=== PATIENT | female | born 1970 | race Caucasian/White ===

== ENCOUNTER 2019-04-06 11:59 | Outpatient (CLI) | payer MEDICAID, SELFPAY ==
--- NOTE | 2019-04-06 12:24 | CT_ITS ---
WS: [id number] CT ABDOMEN PELVIS TECHNIQUE: Contrast-enhanced CT of the abdomen and pelvis with coronal and sagittal reformatted image s. CLINICAL INFORMATION: ABDOMINAL PAIN COMPARISON: 2 ,019 DLP: 581.[address] scans at [facility] use at least one of these dose optimization techniques: automat ed exposure control; mA and/or kV adjustment per patient size (includes targeted exams where dose is matched to clinical indication); or iterative reconstruction. FINDINGS: Mild diffuse fatty infiltration the liver. Portal vein and splenic vein are patent. Normal gallbladde r. Spleen is normal. Normal GE junction. Adrenal glands are normal. Normal renal parenchymal enhancem ent. Pancreatic fatty atrophy. A few tiny low-attenuation lesions in the liver too small characterize but likely incidental hepatic cysts. Urine distended bladder. Scattered stool in the colon. No evidence of small or large bowel obstructio n. Mild tapered narrowing of the distal abdominal aorta with moderate atheromatous disease. This is u nchanged in appearance. Normal lumbar spine. CT/CT abdomen pelvis w con* [id number] IMPRESSION: 1. Mild diffuse fatty infiltration the liver. A few tiny low-attenuation hepat ic lesions too small characterize likely hepatic cysts. 2. Normal gallbladder. 3. Normal bilateral renal parenchymal enhancement. No hydronephrosis. 4. Mild tapered narrowing of the distal abdominal aorta unchanged. 5. Scattered stool in the colon. No high-grade small or large bowel obstructio n. 6. Urine distended bladder 7. Prior hysterectomy. 8. No acute abdominal or pelvic findings.
[2019-04-06] MEDS: iohexol 300 mg/mL 50 mL Btl IV (12:31)
[2019-04-06] MEDS: iohexol 300 mg/mL 100 mL Btl IV (13:58)
== END 2019-04-06 12:00 | disposition home or self-care (01) ==
LOC: RAD 12:00
PROVIDERS: Family Provider Internal Medicine; PCP Internal Medicine; Visit Provider Internal Medicine
DX: K76.0 Fatty (change of) liver, not elsewhere classified (principal); R10.9 Unspecified abdominal pain
CPT/HCPCS: 74177

== ENCOUNTER → 2019-04-22 14:07 | Outpatient (BNVA) | payer MEDICAID, SELFPAY | PROVIDERS: Family Provider Internal Medicine; PCP Internal Medicine; Visit Provider Nurse Practitioner Family | DX: R07.1 Chest pain on breathing (principal); R05 Cough | CPT/HCPCS: 71046 ==

== ENCOUNTER → 2019-04-30 11:04 | Outpatient (BNVA) | payer MEDICAID, SELFPAY | PROVIDERS: Family Provider Internal Medicine; PCP Internal Medicine; Visit Provider Specialist | DX: G43.711 Chronic migraine without aura, intractable, with status migrainosus (principal); F17.210 Nicotine dependence, cigarettes, uncomplicated | CPT/HCPCS: 64615; J0585 ==

== ENCOUNTER 2019-05-08 08:14 | Day surgery (SDC) | payer MEDICAID, SELFPAY ==
[2019-05-07 14:10] VITALS: BMI 22.4
--- NOTE | 2019-05-08 08:53 | ANES.PREANE2 ---
Pre-Anesthetic Assessment Pre-Anesthetic Assessment: Height/Weight: Height 1.65 m Weight 61.235 kg Preop Diagnosis: Pain Proposed Procedure: Operation Date: 05/08/19 09:30 Proposed Procedures p Colonoscopy(Not Applicable) - Nathaniel Zelaya MD Was Beta Tejal taken within 24 hours: Yes Last Intake: 23:59 Social: Social History: Tobacco Packs per day: 1 Comment: 38 Exam: Pre-Anes Outpt Exam: alert, oriented x 3, clear to auscultation bilaterally and regular rate & rhythm Airway: Submandibular: WNL Cervical ROM: WNL MP: 1 Additional comments: very, very poor CV/HEM: CV/HEM: HTN Comments: 19 stress test negative 2 blocks/2 FOS without angina/WADE GI: Comments: diarrhea and pain with defecation Metabolic: Metabolic: DM Comments: rx'd x 19y normally 40-200 Neuropsych: Neuropsych: CVA Comments: 10/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
[2019-05-08 09:27] VITALS: BP 109/65; PULSE 87; RESP 18; TEMP 36.7; O2SAT 96
[2019-05-08 09:35] LABS: Glucose Point of Care 103 mg/dL (70-110)
[2019-05-08] MEDS: sodium chloride 0.9% 1,000 ML 30 ML (09:37)
--- NOTE | 2019-05-08 10:31 | PM.HPUD ---
H&P update H&P Update: DATE OF SURGERY/PROCEDURE: 05/08/19 DATE H&P PERFORMED: 04/30/19 H&P UPDATE INFORMATION: H&P completed within last 30 days and No changes to prior documentation PREOP DIAGNOSIS: a PLANNED PROCEDURE: Operation Date: 05/08/19 09:30 Proposed Procedures p Colonoscopy(Not Applicable) - Nathaniel Zelaya MD Full H&P Perinent History: Medical/Surgical History: Medical History (Updated 04/30/19 @ 13:17 by Celi Peoples MD) Fibromyalgia (Acute) Multiple sclerosis (Acute) Type 1 diabetes mellitus with complication (Acute) Social History: Social History Smoking and tobacco status: current every day smoker cigarettes Packs smoked per day: 1 Alcohol intake: never History of recent travel: No
[2019-05-08 11:16] VITALS: BP 119/49; PULSE 73; RESP 18; TEMP 36.6; O2SAT 97
[2019-05-08 11:38] VITALS: BP 123/73; PULSE 76; RESP 18; O2SAT 99
[2019-05-08 11:53] LABS: Glucose Point of Care 99 mg/dL (70-110)
== END 2019-05-08 11:52 | disposition home or self-care (01) ==
PROVIDERS: Family Provider Internal Medicine; PCP Internal Medicine; Visit Provider Internal Medicine
PROC: 0DJD8ZZ Inspection of Lower Intestinal Tract, Via Natural or Artificial Opening Endoscopic (ICD-10-PCS; CPT 45378; principal; 2019-05-08 09:30)
DX: R19.8 Other specified symptoms and signs involving the digestive system and abdomen (principal); R19.7 Diarrhea, unspecified; F17.210 Nicotine dependence, cigarettes, uncomplicated; E11.40 Type 2 diabetes mellitus with diabetic neuropathy, unspecified; M70.62 Trochanteric bursitis, left hip; Z79.4 Long term (current) use of insulin; Z86.73 Personal history of transient ischemic attack (TIA), and cerebral infarction without residual deficits
CPT/HCPCS: 12345; 36416; 45378; 82962; J2704; J7030

== ENCOUNTER → 2019-08-13 09:02 | Outpatient (BNVA) | payer MEDICAID, SELFPAY | PROVIDERS: Family Provider Internal Medicine; PCP Internal Medicine; Visit Provider Specialist | DX: G43.711 Chronic migraine without aura, intractable, with status migrainosus (principal); F17.210 Nicotine dependence, cigarettes, uncomplicated | CPT/HCPCS: 64615; J0585 ==

== ENCOUNTER 2019-08-18 11:24 | Outpatient (CLI) | payer MEDICAID, SELFPAY ==
--- NOTE | 2019-08-18 11:30 | XRR_ITS ---
PROCEDURE INFORMATION: Exam: XR Left Hip Exam date and time: 08/18/2019 11:29 AM Age: 48 years old Clinical indication: Patient HX: Left hip pain for 6 months; Additional info: Chronic left hip pain TECHNIQUE: Imaging protocol: XR Left hip Views: AP neutral and frogleg standing views. COMPARISON: CT abdomen pelvis w con* [id number] 04/06/2019 2:00 PM FINDINGS: Bones/joints: Unremarkable. No acute fracture. Soft tissues: Unremarkable. XR/XR hip LT 2-3V wo/w pel* [id number] IMPRESSION: No acute findings.
--- NOTE | 2019-08-18 11:44 | XRR_ITS ---
PROCEDURE INFORMATION: Exam: XR Abdomen, 1 View Exam date and time: 08/18/2019 11:48 AM Age: 48 years old Clinical indication: Abdominal pain; Prior surgery; Surgery date: 6+ months; Surgery type: C section, hysto TECHNIQUE: Imaging protocol: XR of the abdomen. Views: Frontal supine view of the abdomen. 1 View. COMPARISON: [place] Gastric Emptying [id number] 06/13/2018 7:32 AM FINDINGS: Gastrointestinal tract: There is increased stool noted in the abdominal colon. Bones/joints: No acute abnormality identified. XR/XR KUB [id number] IMPRESSION: Mild abdominal colonic constipation.
== END 2019-08-18 11:25 | disposition home or self-care (01) ==
PROVIDERS: PCP Internal Medicine; Visit Provider Internal Medicine
DX: R10.9 Unspecified abdominal pain (principal); M25.552 Pain in left hip; G89.29 Other chronic pain; K59.00 Constipation, unspecified
CPT/HCPCS: 73502; 74018

== ENCOUNTER → 2019-09-02 10:30 | Outpatient (BNVA) | payer MEDICAID, SELFPAY | PROVIDERS: PCP Internal Medicine; Visit Provider Nurse Practitioner Family | DX: R50.9 Fever, unspecified (principal); R51 Headache | CPT/HCPCS: 87400; 87635 ==

== ENCOUNTER 2019-09-18 12:02 | Outpatient (CLI) | payer MEDICAID, SELFPAY ==
[2019-09-18] MEDS: iohexol 300 mg/mL 50 mL Btl PO (13:18)
--- NOTE | 2019-09-18 13:30 | CT_ITS ---
WS: [id number] CT ABDOMEN PELVIS TECHNIQUE: Contrast-enhanced CT of the abdomen and pelvis with coronal and sagittal reformatted image s. CLINICAL INFORMATION: RLQ COMPARISON: CT April 06, 2019, May 14, 2018 DLP: 1145.[address] scans at [facility] use at least one of these dose optimization techniques: automat ed exposure control; mA and/or kV adjustment per patient size (includes targeted exams where dose is matched to clinical indication); or iterative reconstruction. FINDINGS: Mild diffuse fatty infiltration liver. Portal vein and splenic vein are patent. Lung bases are well a erated. Normal gallbladder. Spleen is normal. Normal GE junction. Adrenal glands are normal. No hydro nephrosis. Normal renal parenchymal enhancement. Fatty atrophy of the pancreas. Stable tiny low-atten uation lesions in the liver likely hepatic cyst. Small and large bowel appear normal. Normal appendix in the right lower quadrant. Scattered stool in the colon. Mild narrowing of the distal abdominal aorta with moderate calcified atheromatous disease unchanged. Normal lumbar spine. Prior hysterectomy. CT/CT abdomen pelvis w con* [id number] IMPRESSION: 1. No acute abdominal or pelvic findings. 2. Prior hysterectomy. 3. Mild diffuse fatty infiltration of the liver. A few tiny low-attenuation he patic lesions likely hepatic cysts unchanged. 4. Normal gallbladder. 5. Normal appendix. 6. Mild narrowing of the distal abdominal aorta with moderate atheromatous dis ease unchanged.
[2019-09-18] MEDS: iohexol 300 mg/mL 100 mL Btl IV (13:41)
== END 2019-09-18 12:03 | disposition home or self-care (01) ==
LOC: RADWPI 12:09
PROVIDERS: Family Provider Internal Medicine; PCP Internal Medicine; Visit Provider Internal Medicine
DX: R10.31 Right lower quadrant pain (principal); K76.0 Fatty (change of) liver, not elsewhere classified; K76.9 Liver disease, unspecified
CPT/HCPCS: 74177; Q9967

== ENCOUNTER 2019-10-01 01:20 | Emergency (ER) | payer MEDICAID, SELFPAY ==
[2019-10-01 01:27] VITALS: BP 167/95; PULSE 117; RESP 14; TEMP 36.8; O2SAT 97; BMI 26.6
--- NOTE | 2019-10-01 01:27 | ED_ITS ---
HPI - Nausea/Vomiting/Diarrhea General: Chief complaint: Abdominal Pain Stated complaint: N/V Time Seen by Provider: 10/01/19 01:21 Source: patient and EMS Mode of arrival: EMS Limitations: no limitations History of Present Illness: HPI Narrative: 48-year-old female who has a history of chronic abdominal pain along with vomiting. Patient states she is been vomiting over the last day and unable to keep any better medicines down. Patient states she cannot stop vomiting. She has diffuse abdominal cramping she rates a 5 out of 10. She denies any worsening or improving factors. Patient denies any diarrhea. MD elicited complaint: nausea and vomiting Onset (ago): day(s) Associated nausea: Yes Quality: cramping Exacerbating factors: none Relieving factors: none Associated symtoms: Reports nausea; Denies chest pain, dysuria or headache(s) Review of Systems Const: Denies: fever(s), chills, body aches or change in appetite Eyes: Denies: blurry vision or eye discomfort ENMT: Denies: throat pain or dental pain Card: Denies: chest pain Resp: Denies: dyspnea GI: Reports: abdominal pain, nausea and vomiting : Denies: dysuria Musc: Denies: neck pain or back pain Skin/Breast: Denies: rash Neuro: Denies: headache(s) Psych: Denies: depression Serafin/Lymph: Denies: easy bruising All/Imm: Denies: urticaria PFSH ED PFSH: Medical History Fibromyalgia Multiple sclerosis Type 1 diabetes mellitus with complication Social History Smoking and tobacco status: current every day smoker cigarettes Packs smoked per day: 1 Alcohol intake: never History of recent travel: No Physical Exam Const: COMMON NORMALS: no acute distress, patient oriented x3 and healthy appearing HENMT: COMMON NORMALS: normocephalic and atraumatic HEAD & SCALP: normocephalic and atraumatic Eye: COMMON NORMALS: Equal, round and reactive pupils present and EOMs intact bilaterally PUPIL: Yes Equal, round and reactive pupils present Neck/C-Spine: COMMON NORMALS: full ROM and supple Chest: COMMONS NORMALS: normal inspection of the chest and normal palpation of entire chest wall Resp: COMMON NORMALS: normal respiratory effort, No retractions, No use of accessory muscles and clear to auscultation bilaterally AUSCULTATION: clear to auscultation bilaterally Cardio: COMMON NORMALS: regular rate, regular rhythm and No murmurs present (Cardio) RATE: regular rate RHYTHM: regular rhythm GI: COMMON NORMALS: Normal to inspection, nondistended, normoactive bowel sounds present, Soft to palpation, non-tender and no masses PALPATION: Yes Soft to palpation Extremity: COMMON NORMALS: normal to inspection and full ROM Neuro: COMMON NORMALS: patient oriented x3, moves all extremities and no focal motor deficits Psych: COMMON NORMALS: mental status grossly normal, Normal thought process present and cooperative THOUGHT PROCESS: Normal thought process present Skin: COMMON NORMALS: no rashes or lesions noted and no wounds GENERAL SKIN EXAM: no rashes or lesions noted Course Vital Signs: Vital signs: Vital Signs Temperature 98.3 F 10/01/19 01:27 Pulse Rate 93 10/01/19 05:09 Respiratory Rate 18 10/01/19 05:09 Blood Pressure 144/96 10/01/19 05:09 Pulse Oximetry 98 10/01/19 05:09 MDM - Nausea/Vomiting/Diarrhea MDM Narrative: Medical decision making narrative: Kanchan presents here with abdominal pain along with vomiting that is chronic in nature. Patient had slightly elevated white count with CT scan is normal. Patient's feels much improved after IV Reglan and pain meds. Abdominal exam at discharge is benign with no tenderness. Will prescribe her Reglan and Zofran for home and she is to follow-up with PCP in 2 to 4 days. Patient is return if worsening. Patient understands and agrees to plan. Lab Data: Labs: Lab Results 10/01/19 10/01/19 Range/Units 01:39 01:39 WBC 14.6 H (4.0-10.0) 10^3/ uL RBC 4.78 (4.1-5.3) 10^6/u L Hgb 16.0 H (11.5-15.3) g/dL Hct 49.0 H (37.0-47.0) % MCV 102.5 H (81-99) fL MCH 33.5 (28.0-34.0) pg MCHC 32.7 (30.0-36.0) g/dL RDW 12.2 (12.1-15.1) % Plt Count 393 (130-400) 10^3/c mm MPV 10.7 H (7.4-10.4) fL Neut % (Auto) 89.3 % Lymph % (Auto) 8.1 % [place] % (Auto) 2.1 % Eos % (Auto) 0.0 % Baso % (Auto) 0.1 % Neut # (Auto) 13.0 H (1.8-7.7) 10^3/u L Lymph # (Auto) 1.2 (0.8-4.8) 10^3/u L [place] # (Auto) 0.3 (0.2-0.9) 10^3/u L Eos # (Auto) 0.0 (0.0-0.8) 10^3/u L Baso # (Auto) 0.0 (0.0-0.1) 10^3/u L Nucleated RBC % (a uto) 0 % Nucleated RBCs # 0.0 /100WBC Sodium 139 (136-145) mmol/L Potassium 4.3 (3.5-5.1) mmol/L Chloride 98 (98-107) mmol/L Carbon Dioxide 23 (22-29) mmol/L Anion Gap 22.3 H (5-19) BUN 11 (6-20) mg/dL Creatinine 0.6 (0.5-0.9) mg/dL GFR Calculation 106.3 (90-130) mL/min Glucose 423 H (65-115) mg/dL Calculated Osmolal ity 302 H (285-295) mOsm/k g Calcium 9.2 (8.5-10.5) mg/dL Total Bilirubin 0.4 (0.15-1.2) mg/dL AST 16 (0-32) U/L ALT 19 (0-33) U/L Alkaline Phosphata se 216 H (35-105) IU/L Total Protein 8.0 (6.6-8.7) g/dL Albumin 4.1 (3.5-5.2) g/dL Globulin 3.9 (1.3-4.6) g/dL Lipase 6 L (13-60) U/L Imaging Data^: CT Abd/Pel: Radiologist's impression: [address] [address] [address] Scan Report Signed Patient: Viki Lobo Unit #: [id number] : 1970 Age/Sex: 48 / F ADM Date: 10/01/19 Loc: ER Room/Bed: Attending Dr: Ordering Provider/Ordering MD: Sachin Wahl MD Date of Service: 10/01/19 Procedure(s): CT abdomen pelvis w con* [id number] Accession Number(s): [id number] Report Number: [id number] PROCEDURE INFORMATION: Exam: CT Abdomen And Pelvis With Contrast Exam date and time: 10/01/2019 2:30 AM Age: 48 years old Clinical indication: Nausea and vomiting; Abdominal pain; Generalized; Prior surgery; Surgery type: Hysterectomy; Additional info: Abd pain TECHNIQUE: Imaging protocol: Computed tomography of the abdomen and pelvis with intravenous contrast. Radiation optimization: All CT scans at this facility use at least one of these dose optimization techniques: automated exposure control; mA and/or kV adjustment per patient size (includes targeted exams where dose is matched to clinical indication); or iterative reconstruction. Contrast material: OMNI 300; Contrast volume: 95 ml; Contrast route: INTRAVENOUS (IV); COMPARISON: CT abdomen pelvis w con* [id number] 09/18/2019 1:39 PM RADIATION DOSE METRICS: Total DLP (mGy-cm): 646.44 FINDINGS: Lungs: Lung bases are clear. Mediastinal space: There is a small sliding-type hiatal hernia. Liver: The liver is normal. Gallbladder and bile ducts: The gallbladder is dilated. The wall is thin. No definite stones. No significant biliary dilation. Pancreas: There is marked atrophy of the pancreas. Spleen: The spleen is unremarkable. Adrenals: The adrenal glands are unremarkable. Kidneys and ureters: There is a nonobstructive stone in the right kidney. There is no hydronephrosis or ureteral dilation. The left kidney and ureter are unremarkable. Stomach and bowel: The stomach is unremarkable. The small bowel is nondilated. The colon is unremarkable. Appendix: The appendix is normal. Intraperitoneal space: There is no free air or significant intraperitoneal free fluid. Vasculature: There is moderate aortic atherosclerotic disease. Lymph nodes: There is no lymphadenopathy in the retroperitoneum, mesentery, pelvis or inguinal regions. Bladder: The urinary bladder is unremarkable. Reproductive: The uterus is absent. There is no adnexal mass or large cyst. Bones/joints: Unremarkable. No acute fracture. Soft tissues: The abdominal wall is intact. CT/CT abdomen pelvis w con* [id number] IMPRESSION: 1. Dilated gallbladder. No visible stones or wall thickening. Consider follow-up ultrasound if there is clinical evidence of gallbladder disease. 2. Incidental findings above. Discharge Plan Discharge Patient Disposition: Home, Self-Care Clinical Impression: Hyperglycemia Abdominal pain Qualifiers: Abdominal location: generalized Qualified Code(s): R10.84 - Generalized abdominal pain Condition: Stable Prescriptions: New ondansetron 4 mg tablet,disintegrating 4 mg PO Q6H PRN (Reason: nausea and vomiting) Qty: 14 RF: 0 Reglan 10 mg tablet 10 mg PO Q6H PRN (Reason: nausea and vomiting) Qty: 20 RF: 0 No Action pregabalin [Lyrica] 75 mg capsule 75 mg PO TID MDD 3 Qty: 90 RF: 2 desvenlafaxine 100 mg tablet extended release 24 hr 100 mg PO DAILY Qty: 90 RF: 3 aspirin [Adult Aspirin Regimen] 81 mg tablet,delayed release (DR/EC) 81 mg PO DAILY RF: 0 sumatriptan succinate 100 mg tablet 100 mg PO DAILY PRN (Reason: Migraine Headache) RF: 0 ipratropium bromide 42 mcg (0.06 %) spray,non-aerosol 2 spray INTRANASAL TID RF: 0 diphenhydramine HCl [Allergy (diphenhydramine)] 25 mg capsule 25 mg PO BID PRN (Reason: Allergic Symptoms) RF: 0 nitroglycerin 0.4 mg tablet, sublingual 0.4 mg SUBLINGUAL Q5M PRN (Reason: Chest Pain) RF: 0 sucralfate 1 gram tablet 1 gm PO .COMPLEX RF: 0 furosemide 20 mg tablet 10 mg PO QAM Qty: 10 RF: 0 doxycycline hyclate 100 mg capsule 100 mg PO BID Qty: 10 RF: 0 topiramate 100 mg tablet 100 mg PO BID 90 Days Qty: 180 RF: 3 metoprolol tartrate 25 mg tablet 12.5 mg PO BID 90 Days Qty: 90 RF: 3 Novolog Flexpen U-100 Insulin 100 unit/mL (3 mL) insulin pen 5 unit SUBCUT TID Qty: 15 RF: 3 metoclopramide HCl 10 mg tablet 10 mg PO TID Qty: 90 RF: 3 famotidine 20 mg tablet 20 mg PO DAILY Qty: 30 RF: 3 Lantus Solostar U-100 Insulin 100 unit/mL (3 mL) insulin pen 30 unit SUBCUT BID Qty: 15 RF: 3 morphine [MS Contin] 30 mg tablet extended release 30 mg PO Q12H 30 Days Qty: 60 RF: 0 tizanidine 4 mg tablet 4 mg PO Q6H PRN (Reason: Muscle Spasm) RF: 0 pantoprazole 40 mg tablet,delayed release (DR/EC) 40 mg PO DAILY RF: 0 Discharge Orders: Discharge Order (Routine); Ordered 10/01/19 Ordered By: Sachin Wahl Referrals: Nathaniel Zelaya MD [Primary Care Provider] - 1-3 days Discharge Diet: Advance as tolerated Discharge Activity: Resume usual activity Patient Instructions: Abdominal Pain (ED) Discharge Date/Time: 10/01/19 05:12 Coding Level of Care Code ED Marketing Teacher for Chg Fwd Exam Comprehensive
[2019-10-01] MEDS: sodium chloride 0.9% 1,000 ML 999 ML IV ×2 (01:40→02:30)
[2019-10-01] MEDS: metoclopramide 5 mg/mL SDV 2 mL 10 MG IVP (01:42)
[2019-10-01] MEDS: diphenhydrAMINE 50 mg/mL SDV 1mL IVP (01:45)
[2019-10-01 01:50] VITALS: RESP 20; O2SAT 98
[2019-10-01] MEDS: morphine 4 mg/mL SDV 1 mL IVP (01:50)
[2019-10-01 01:54] LABS: Basophils % 0.1 %; Lymphocytes # 1.2 10^3/uL (0.8-4.8); Lymphocytes % 8.1 %; Mean Corpuscular HGB Conc 32.7 g/dL (30.0-36.0); Mean Corpuscular Hemoglobin 33.5 pg (28.0-34.0); Mean Corpuscular Volume 102.5 fL (81-99); Mean Platelet Volume 10.7 fL (7.4-10.4); Monocytes # 0.3 10^3/uL (0.2-0.9); Monocytes % 2.1 %; Neutrophils % 89.3 %; Nucleated Red Blood Cells % 0 %; Platelet Count 393 10^3/cmm (130-400); Red Blood Count 4.78 10^6/uL (4.1-5.3); Red Cell Distribution Width 12.2 % (12.1-15.1); White Blood Count 14.6 10^3/uL (4.0-10.0)
[2019-10-01 02:09] LABS: Alanine Aminotransferase 19 U/L (0-33); Albumin Level 4.1 g/dL (3.5-5.2); Alkaline Phosphatase 216 IU/L (35-105); Anion Gap 22.3 (5-19); Aspartate Amino Transferase 16 U/L (0-32); Blood Urea Nitrogen 11 mg/dL (6-20); Calcium 9.2 mg/dL (8.5-10.5); Carbon Dioxide 23 mmol/L (22-29); Chloride 98 mmol/L (98-107); Globulin 3.9 g/dL (1.3-4.6); Glomerular Filtration Rate 106.3 mL/min (90-130); Glucose 423 mg/dL (65-115); Lipase 6 U/L (13-60); Osmolality Calculated 302 mOsm/kg (285-295); Potassium 4.3 mmol/L (3.5-5.1); Sodium 139 mmol/L (136-145); Total Bilirubin 0.4 mg/dL (0.15-1.2)
--- NOTE | 2019-10-01 02:27 | CTR_ITS ---
PROCEDURE INFORMATION: Exam: CT Abdomen And Pelvis With Contrast Exam date and time: 10/01/2019 2:30 AM Age: 48 years old Clinical indication: Nausea and vomiting; Abdominal pain; Generalized; Prior surgery; Surgery type: Hysterectomy; Additional info: Abd pain TECHNIQUE: Imaging protocol: Computed tomography of the abdomen and pelvis with intravenous contrast. Radiation optimization: All CT scans at this facility use at least one of these dose optimization techniques: automated exposure control; mA and/or kV adjustment per patient size (includes targeted exams where dose is matched to clinical indication); or iterative reconstruction. Contrast material: OMNI 300; Contrast volume: 95 ml; Contrast route: INTRAVENOUS (IV); COMPARISON: CT abdomen pelvis w con* [id number] 09/18/2019 1:39 PM RADIATION DOSE METRICS: Total DLP (mGy-cm): 646.44 FINDINGS: Lungs: Lung bases are clear. Mediastinal space: There is a small sliding-type hiatal hernia. Liver: The liver is normal. Gallbladder and bile ducts: The gallbladder is dilated. The wall is thin. No definite stones. No significant biliary dilation. Pancreas: There is marked atrophy of the pancreas. Spleen: The spleen is unremarkable. Adrenals: The adrenal glands are unremarkable. Kidneys and ureters: There is a nonobstructive stone in the right kidney. There is no hydronephrosis or ureteral dilation. The left kidney and ureter are unremarkable. Stomach and bowel: The stomach is unremarkable. The small bowel is nondilated. The colon is unremarkable. Appendix: The appendix is normal. Intraperitoneal space: There is no free air or significant intraperitoneal free fluid. Vasculature: There is moderate aortic atherosclerotic disease. Lymph nodes: There is no lymphadenopathy in the retroperitoneum, mesentery, pelvis or inguinal regions. Bladder: The urinary bladder is unremarkable. Reproductive: The uterus is absent. There is no adnexal mass or large cyst. Bones/joints: Unremarkable. No acute fracture. Soft tissues: The abdominal wall is intact. CT/CT abdomen pelvis w con* [id number] IMPRESSION: 1. Dilated gallbladder. No visible stones or wall thickening. Consider follow-up ultrasound if there is clinical evidence of gallbladder disease. 2. Incidental findings above. Radiation Dose CTDIVOL = (mGy): DLP = 646.44 (mGy-cm)
[2019-10-01] MEDS: insulin regular-human 100 units/1 mL 10 UNIT IVP (02:37)
[2019-10-01] MEDS: iohexol 300 mg/mL 100 mL Btl IV (04:01)
[2019-10-01 05:09] VITALS: BP 144/96; PULSE 93; RESP 18; O2SAT 98
[2019-10-01 05:16] LABS: Blood Urine Trace (Negative); Glucose Urine UA 4+ (Normal); Ketones Urine 2+ (Negative); Protein Urine Neg (Negative); Specific Gravity, Urine 1.005 (1.005-1.030); Urine Appearance Clear (CLEAR); Urine Color Yellow (Yellow)
[2019-10-01 05:17] LABS: Add Urine Culture? No; Add Urine Microscopic? YES; Bacteria Urine TRACE; Bilirubin Urine Neg (NEGATIVE); Leukocyte Esterase Urine Negative (Negative); Mucus Urine TRACE; Nitrate Urine Negative (Negative); RBC Urine 0-4 /hpf (0-2); Squamous Epithelial Cell Urine 0-4 (0-5); Urobilinogen Urine Norm (Negative)
[2019-10-01 07:58] LABS: Glucose Point of Care 301 mg/dL (70-110)
--- NOTE | 2019-10-01 08:43 | DCPLANNER ---
real estate leasing manager had message to schedule a follow up appointment for patient with Dr. Colindres. real estate leasing manager called the office of Dr. Colindres, spoke with Jazmin, a follow up appointment was scheduled for Sunday, October 06, 2019 at 2:00. real estate leasing manager faxed patients information to clinic. Clinic will call patient with appointment information.
--- NOTE | 2019-10-14 13:58 | DCPLANNER ---
Patient did not attend appointment scheduled for 10.06.[address] Colindres.
== END 2019-10-01 05:12 | disposition home or self-care (01) ==
PROVIDERS: Emergency Provider Emergency Medicine; PCP Internal Medicine
DX: R10.84 Generalized abdominal pain (principal); E10.65 Type 1 diabetes mellitus with hyperglycemia; Z79.82 Long term (current) use of aspirin; Z79.4 Long term (current) use of insulin; F17.210 Nicotine dependence, cigarettes, uncomplicated
CPT/HCPCS: 12345; 36416; 74177; 80053; 81001; 82962; 83690; 85025; 96361; 96374; 96375; 99282; 99283; J1200; J1815; J2270; J2765; J7030; Q9967

== ENCOUNTER 2019-10-01 21:14 | Inpatient (IN) | payer MEDICAID, SELFPAY ==
[2019-10-01 22:47] LABS: Basophils % 0.2 %; Hemoglobin 15.2 g/dL (11.5-15.3); Lymphocytes # 1.7 10^3/uL (0.8-4.8); Lymphocytes % 9.3 %; Mean Corpuscular Hemoglobin 33.3 pg (28.0-34.0); Mean Corpuscular Volume 100.9 fL (81-99); Mean Platelet Volume 10.9 fL (7.4-10.4); Monocytes # 0.8 10^3/uL (0.2-0.9); Monocytes % 4.7 %; Neutrophils # 15.3 10^3/uL (1.8-7.7); Neutrophils % 85.2 %; Nucleated Red Blood Cells % 0 %; Platelet Count 486 10^3/cmm (130-400); Red Blood Count 4.56 10^6/uL (4.1-5.3); Red Cell Distribution Width 12.5 % (12.1-15.1)
[2019-10-01 22:51] VITALS: BP 132/67; PULSE 123; RESP 18; TEMP 36.8; O2SAT 99; BMI 26.6
--- NOTE | 2019-10-01 22:53 | ED_ITS ---
Documented by User: BILL Torres 10/02/19 02:51 HPI - Abdominal Pain General: Chief Complaint: Nausea/Vomiting/Diarrhea Stated Complaint: n/v Time Seen by Provider: 10/01/19 22:53 Source: patient Mode of arrival: ambulatory Limitations: no limitations History of Present Illness: HPI narrative: Patient comes in today for complaints of nausea and vomiting and generalized abdominal pain. Patient was evaluated last night for same complaints. Patient had a mild leukocytosis of 14,000. CT scan showed no obvious abnormality. Patient came back due to persistent nausea and vomiting and pain. Patient appears unwell. Patient appears in moderate pain. MD elicited complaint: abdominal pain Associated Symptoms: Reports nausea and vomiting Review of Systems General: Reports: 10 or more systems reviewed and unremarkable except in HPI and below GI: Reports: abdominal pain, nausea and vomiting PFSH ED PFSH: Medical History Chronic migraine without aura, intractable, with status migrainosus CVA (cerebral vascular accident) Received TPA 10/17 Fibromyalgia Gastroparesis Generalized anxiety disorder Multiple sclerosis Multiple sclerosis Painful diabetic neuropathy TIA (transient ischemic attack) Trochanteric bursitis of left hip Type 1 diabetes mellitus with complication Surgical History H/O carpal tunnel repair H/O shoulder surgery H/O: hysterectomy Hx of tubal ligation Family History (Updated 10/02/19 @ 03:30 by Alexx Cintron MD) Denies family history of Hyperlipidemia Hypertension Social History Smoking and tobacco status: current every day smoker cigarettes Packs smoked per day: 1 Alcohol intake: never History of recent travel: No Physical Exam Const: COMMON NORMALS: no acute distress and patient oriented x3 GENERAL APPEARANCE: cooperative HENMT: COMMON NORMALS: normocephalic, TM's normal bilaterally and Normal external nose present HEAD & SCALP: normal to inspection and normocephalic NOSE: Normal external nose present TYMPANIC MEMBRANE: TM's normal bilaterally MOUTH: Normal oral and palatal mucosa present THROAT: posterior oropharynx normal Eye: GENERAL EYE: appearance normal, both eyes and all related structures Neck/C-Spine: COMMON NORMALS: full ROM Lymph: LYMPHATIC: no lymphadenopathy noted Chest: COMMONS NORMALS: normal inspection of the chest Resp: COMMON NORMALS: normal respiratory effort EFFORT & INSPECTION: Yes able to speak in complete sentences Cardio: COMMON NORMALS: regular rate and regular rhythm RATE: regular rate RHYTHM: regular rhythm GI: COMMON NORMALS: Soft to palpation PALPATION: Yes Soft to palpation and Yes Tenderness to palpation present (GI) : COMMON NORMALS: Yes no CVA tenderness BLADDER/KIDNEY EXAM: Yes no CVA tenderness Back/Pelvis: COMMON NORMALS: no CVA tenderness and thoracic and lumbar spine normal to inspection Extremity: COMMON NORMALS: normal to inspection Neuro: COMMON NORMALS: patient oriented x3 and moves all extremities Psych: COMMON NORMALS: mental status grossly normal and cooperative Skin: COMMON NORMALS: no rashes or lesions noted GENERAL SKIN EXAM: no rashes or lesions noted Course ED course: 29, reviewed labs with Dr. Wahl who feels the patient probably is dehydrated now from intractable vomiting. Recommended observation admission for treatment. Reviewed with patient who is agreeable to plan. wjw 112, patient has had another episode of nausea and vomiting, ordered 25 mg prom ethazine IM, wjw Vital Signs: Vital signs: Vital Signs Temperature 98.2 F 10/01/19 22:51 Pulse Rate 123 H 10/01/19 22:51 Respiratory Rate 16 10/02/19 00:33 Blood Pressure 132/67 10/01/19 22:51 Pulse Oximetry 99 10/01/19 22:51 MDM - Abdominal Pain MDM Narrative: Medical decision making narrative: Patient comes in for persistent vomiting and abdominal pain. Patient has chronic history of abdominal pain with recurrent nausea and vomiting. Patient also has a history of diabetes type 1 and pancreatitis. Patient started 2 days ago with vomiting and abdominal pain. Patient was evaluated last evening and was noted not to have any significant illness after laboratory values and CT scan of the abdomen. Patient came in today due to persistent symptoms. Exam noted abdominal tenderness to light palpation. Vital signs were normal. Differential diagnosis includes diabetic ketoacidosis, intractable vomiting, dehydration. Laboratory values noted increase in white count 18,000 from last evening. Blood glucose went to 467, sodium was 146, anion gap was 30. Patient did have serum ketones. Ultrasound of the right side abdomen noted fluid in the stomach, normal gallbladder, and some mild fat on the liver. I reviewed this with Dr. Wahl who agreed with plan that patient should be admitted observation for her dehydration and intractable vomiting. Patient was treated in the ER with IV fluids and medications. Patient needs admission for continuation of IV fluids, management for nausea and vomiting, pain control and monitoring for deterioration of condition. Lab Data: Labs: Lab Results 10/01/19 10/01/19 10/01/19 Range/Units 22:30 22:30 22:30 WBC 18.0 H (4.0-10.0) 10^3/ uL RBC 4.56 (4.1-5.3) 10^6/u L Hgb 15.2 (11.5-15.3) g/dL Hct 46.0 (37.0-47.0) % MCV 100.9 H (81-99) fL MCH 33.3 (28.0-34.0) pg MCHC 33.0 (30.0-36.0) g/dL RDW 12.5 (12.1-15.1) % Plt Count 486 H (130-400) 10^3/c mm MPV 10.9 H (7.4-10.4) fL Neut % (Auto) 85.2 % Lymph % (Auto) 9.3 % Shannon % (Auto) 4.7 % Eos % (Auto) 0.0 % Baso % (Auto) 0.2 % Neut # (Auto) 15.3 H (1.8-7.7) 10^3/u L Lymph # (Auto) 1.7 (0.8-4.8) 10^3/u L Shannon # (Auto) 0.8 (0.2-0.9) 10^3/u L Eos # (Auto) 0.0 (0.0-0.8) 10^3/u L Baso # (Auto) 0.0 (0.0-0.1) 10^3/u L Nucleated RBC % (a uto) 0 % Nucleated RBCs # 0.0 /100WBC Sodium 146 H (136-145) mmol/L Potassium 3.6 (3.5-5.1) mmol/L Chloride 99 (98-107) mmol/L Carbon Dioxide 20 L (22-29) mmol/L Anion Gap 30.6 H (5-19) BUN 17 (6-20) mg/dL Creatinine 0.8 (0.5-0.9) mg/dL GFR Calculation 76.2 L (90-130) mL/min Glucose 467 H (65-115) mg/dL Calculated Osmolal ity 319 H (285-295) mOsm/k g Calcium 10.0 (8.5-10.5) mg/dL Total Bilirubin 0.5 (0.15-1.2) mg/dL AST 11 (0-32) U/L ALT 16 (0-33) U/L Alkaline Phosphata se 195 H (35-105) IU/L Total Protein 7.7 (6.6-8.7) g/dL Albumin 4.3 (3.5-5.2) g/dL Globulin 3.4 (1.3-4.6) g/dL Lipase 81 H (13-60) U/L Serum Ketones Positive H (Negative) Discharge Plan Discharge Admit Provider: Alexx Cintron Clinical Impression: Type 1 diabetes mellitus with complication, Acute dehydration Intractable vomiting Qualifiers: Vomiting type: unspecified Nausea presence: with nausea Qualified Code(s): R11.2 - Nausea with vomiting, unspecified Condition: Stable Coding Level of Care Code ED Activities Aide for Chg Fwd Exam Comprehensive Documented by User: Sachin Wahl MD 10/02/19 03:41 HPI - Abdominal Pain General: Chief Complaint: Nausea/Vomiting/Diarrhea Stated Complaint: n/v Time Seen by Provider: 10/01/19 22:53 PFSH ED PFSH: Medical History Chronic migraine without aura, intractable, with status migrainosus CVA (cerebral vascular accident) Received TPA 10/17 Fibromyalgia Gastroparesis Generalized anxiety disorder Multiple sclerosis Multiple sclerosis Painful diabetic neuropathy TIA (transient ischemic attack) Trochanteric bursitis of left hip Type 1 diabetes mellitus with complication Surgical History H/O carpal tunnel repair H/O shoulder surgery H/O: hysterectomy Hx of tubal ligation Family History (Updated 10/02/19 @ 03:30 by Alexx Cintron MD) Denies family history of Hyperlipidemia Hypertension Social History Smoking and tobacco status: current every day smoker cigarettes Packs smoked per day: 1 Alcohol intake: never History of recent travel: No Course Vital Signs: Vital signs: Vital Signs Temperature 98.2 F 10/01/19 22:51 Pulse Rate 123 H 10/01/19 22:51 Respiratory Rate 16 10/02/19 00:33 Blood Pressure 132/67 10/01/19 22:51 Pulse Oximetry 99 10/01/19 22:51 MDM - Abdominal Pain MDM Narrative: Medical decision making narrative: Patient presents here with intractable vomiting. Patient has dehydration with elevated anion gap likely from dehydration. Her pH here is normal and no signs of DKA. Patient given insulin along with IV fluids. I spoke to hospitalist and will admit. Patient is been stable on the ER. Lab Data: Labs: Lab Results 10/01/19 10/01/19 10/01/19 Range/Units 22:30 22:30 22:30 WBC 18.0 H (4.0-10.0) 10^3/ uL RBC 4.56 (4.1-5.3) 10^6/u L Hgb 15.2 (11.5-15.3) g/dL Hct 46.0 (37.0-47.0) % MCV 100.9 H (81-99) fL MCH 33.3 (28.0-34.0) pg MCHC 33.0 (30.0-36.0) g/dL RDW 12.5 (12.1-15.1) % Plt Count 486 H (130-400) 10^3/c mm MPV 10.9 H (7.4-10.4) fL Neut % (Auto) 85.2 % Lymph % (Auto) 9.3 % Shannon % (Auto) 4.7 % Eos % (Auto) 0.0 % Baso % (Auto) 0.2 % Neut # (Auto) 15.3 H (1.8-7.7) 10^3/u L Lymph # (Auto) 1.7 (0.8-4.8) 10^3/u L Shannon # (Auto) 0.8 (0.2-0.9) 10^3/u L Eos # (Auto) 0.0 (0.0-0.8) 10^3/u L Baso # (Auto) 0.0 (0.0-0.1) 10^3/u L Nucleated RBC % (a uto) 0 % Nucleated RBCs # 0.0 /100WBC Sodium 146 H (136-145) mmol/L Potassium 3.6 (3.5-5.1) mmol/L Chloride 99 (98-107) mmol/L Carbon Dioxide 20 L (22-29) mmol/L Anion Gap 30.6 H (5-19) BUN 17 (6-20) mg/dL Creatinine 0.8 (0.5-0.9) mg/dL GFR Calculation 76.2 L (90-130) mL/min Glucose 467 H (65-115) mg/dL Calculated Osmolal ity 319 H (285-295) mOsm/k g Calcium 10.0 (8.5-10.5) mg/dL Total Bilirubin 0.5 (0.15-1.2) mg/dL AST 11 (0-32) U/L ALT 16 (0-33) U/L Alkaline Phosphata se 195 H (35-105) IU/L Total Protein 7.7 (6.6-8.7) g/dL Albumin 4.3 (3.5-5.2) g/dL Globulin 3.4 (1.3-4.6) g/dL Lipase 81 H (13-60) U/L Serum Ketones Positive H (Negative) Discharge Plan Discharge Admit Provider: Alexx Cintron Clinical Impression: Type 1 diabetes mellitus with complication, Acute dehydration Intractable vomiting Qualifiers: Vomiting type: unspecified Nausea presence: with nausea Qualified Code(s): R11.2 - Nausea with vomiting, unspecified Condition: Stable Coding Level of Care Code ED Activities Aide for [facility] Fwd Exam Comprehensive
[2019-10-01 23:09] LABS: Alanine Aminotransferase 16 U/L (0-33); Albumin Level 4.3 g/dL (3.5-5.2); Alkaline Phosphatase 195 IU/L (35-105); Anion Gap 30.6 (5-19); Aspartate Amino Transferase 11 U/L (0-32); Blood Urea Nitrogen 17 mg/dL (6-20); Carbon Dioxide 20 mmol/L (22-29); Chloride 99 mmol/L (98-107); Globulin 3.4 g/dL (1.3-4.6); Glomerular Filtration Rate 76.2 mL/min (90-130); Glucose 467 mg/dL (65-115); Lipase 81 U/L (13-60); Osmolality Calculated 319 mOsm/kg (285-295); Potassium 3.6 mmol/L (3.5-5.1); Sodium 146 mmol/L (136-145); Total Bilirubin 0.5 mg/dL (0.15-1.2); Total Protein 7.7 g/dL (6.6-8.7)
--- NOTE | 2019-10-01 23:15 | US_ITS ---
WS: [id number] ULTRASOUND ABDOMEN LIMITED CLINICAL INFORMATION: right side abd pain, elevated alk phos, lipase COMPARISON: None. FINDINGS: Liver Size: Normal. Craniocaudal length: 12.0 cm. Echogenicity: Normal. Surface nodularity: None. Mass (size and location): None. Bile ducts Intrahepatic ducts: Normal. Common bile duct diameter: 0.3 cm. Gallbladder Normal. Gallstones: None. Gallbladder sludge: None. Gallbladder wall thickening: None. Pericholecystic fluid: None. Sonographic Monroy sign: Absent. Pancreas Normal as visualized. Right kidney: Normal. Hydronephrosis: None. Size: 10.2 cm x 4.0 cm x 4.0 cm. Abdominal aorta and IVC Visualized portions are normal. Ascites: None. US/US abdomen limited [id number] IMPRESSION: Normal abdominal ultrasound
[2019-10-02] VITALS (17 sets, daily range): BP systolic 106–154; BP diastolic 58–89; PULSE 87–123; RESP 16–25; TEMP 36.5–36.7; O2SAT 92–100
[2019-10-02 00:21] LABS: Ketone (Acetest) Serum Positive (Negative)
[2019-10-02] MEDS: morphine 4 mg/mL SDV 1 mL IVP (00:33)
[2019-10-02] MEDS: diphenhydrAMINE 50 mg/mL SDV 1mL IVP (00:34)
[2019-10-02] MEDS: sodium chloride 0.9% 1,000 ML 999 ML IV (00:34)
[2019-10-02] MEDS: metoclopramide 5 mg/mL SDV 2 mL 10 MG IVP (00:34)
[2019-10-02] MEDS: insulin regular-human 100 units/1 mL 10 UNIT IVP (01:58)
[2019-10-02] MEDS: promethazine 25 mg/mL SDV 1 mL IM (02:00)
[2019-10-02] MEDS: pantoprazole 40 mg SDV IVP ×2 (02:00→22:25)
[2019-10-02] MEDS: sodium chloride 0.9% 1,000 ML 666 ML IV (02:00)
[2019-10-02 02:01] LABS: ABG PCO2 29.2 mmHg (35-45); ABG PH Result 7.41 (7.35-7.45); Arterial Blood Gas Hematocrit 44.4 % (37-47); Base Excess ABG -4.7 mmol/L (-2.0-2.0); Blood Gas Allen Test Pos; Blood Gas Sample Site Radial, right; Blood Gas Sample Type Arterial; HCO3 ABG 18.6 mmol/L (22-26); Oxygen Device ROOM AIR; PO2 ABG 81.1 mmHg (80.0-100.0)
--- NOTE | 2019-10-02 02:16 | P.HP_ITS ---
Providers/Chief Complaint Primary Care Provider: Nathaniel Zelaya MD Chief Complaint: n/v History of Present Illness Viki Lobo is a 48 year old female who carries history of type 1 diabetes, multiple sclerosis, came in for fever and intractable nausea vomiting. Patient has seen Dr. Zelaya for her fever 2 weeks ago, at home she has been having febrile episode of 101.7, Dr. Zelaya started her on doxycycline for possible tickborne illness. Her fever never subsided, 2 days ago she started experiencing midepigastric pain with multiple bouts of nausea and vomiting, and total she has had more than 20 episodes of emesis, bilious, without any blood content. She has not noticed any association with food intake. She has been taking her long-acting and sliding scale although her p.o. intake was not adequate. She is denying shortness of breath, chest pain, sputum production, recently she was tested for code which was negative. He is also denying dysuria, urinary frequency or recent tick bites. She is endorsing chronic neck pain for which she required Botox injection by Dr. Peoples. She is not endorsing aggravatiON of her neck pain or headache. Diagnosis in the ER revealed hyperglycemia, positive ketones, high anion gap without acidosis She has been given 1 L normal saline in the ER, CT abdomen is concerning for gallbladder wall thickening, requested ultrasound abdomen to rule out cholecystitis, no source of fever has been identified I have requested chest x-ray, troponin and lactic acid, EKG as well Review of Systems Const: Reports: fever(s), chills, change in appetite and fatigue Eyes: Denies: change in vision ENMT: Denies: throat pain Card: Denies: chest pain, swelling of feet/ankles, dyspnea on exertion or orthopnea Resp: Denies: dyspnea GI: Reports: abdominal pain, nausea and vomiting : Denies: flank pain Musc: Reports: neck pain Skin/Breast: Reports: rash and lesions Neuro: Reports: headache(s) Psych: Denies: anxiety Endo: Denies: polyuria Serafin/Lymph: Denies: easy bruising All/Imm: Denies: urticaria Medications/Allergies Home Medications Medication Instructions Recorded Confirmed Last Taken Type aspirin 81 mg tablet,delayed 81 mg PO DAILY tab 04/22/19 09/22/19 05/07/19 History release diphenhydramine HCl 25 mg capsule 25 mg PO BID PRN cap 04/22/19 09/22/19 Unknown History ipratropium bromide 42 mcg (0.06 2 spray INTRANASAL TID 04/22/19 09/22/19 05/07/19 History %) nasal spray metoprolol tartrate 25 mg tablet 12.5 mg PO BID 90 Days #90 tab 04/22/19 09/22/19 05/08/19 Rx nitroglycerin 0.4 mg sublingual 0.4 mg SUBLINGUAL Q5M PRN 04/22/19 09/22/19 Unknown History tablet sucralfate 1 gram tablet 1 gm PO .COMPLEX 04/22/19 09/22/19 05/07/19 History sumatriptan succinate 100 mg tablet 100 mg PO DAILY PRN tab 04/22/19 09/22/19 Unknown History topiramate 100 mg tablet 100 mg PO BID 90 Days #180 tab 04/22/19 09/22/19 05/07/19 Rx insulin aspart U-100 100 unit/mL 5 unit SUBCUT TID #15 ml 04/27/19 09/22/19 05/07/19 Rx (3 mL) subcutaneous pen tizanidine 4 mg PO Q6H PRN 05/07/19 09/22/19 Unknown History pantoprazole 40 mg PO DAILY 05/08/19 09/22/19 05/07/19 History famotidine 20 mg tablet 20 mg PO DAILY #30 tab 06/18/19 09/22/19 Unknown Rx metoclopramide HCl 10 mg tablet 10 mg PO TID #90 tab 06/18/19 09/22/19 Unknown Rx pregabalin 75 mg capsule 75 mg PO TID #90 cap MDD 3 07/13/19 09/22/19 Unknown Rx furosemide 20 mg tablet 10 mg PO QAM #10 tab 07/30/19 09/22/19 Unknown Rx desvenlafaxine 100 mg 100 mg PO DAILY #90 tab 09/22/19 09/22/19 Unknown Rx tablet,extended release 24 hour doxycycline hyclate 100 mg capsule 100 mg PO BID #10 cap 09/22/19 09/22/19 Unknown Rx insulin glargine 100 unit/mL (3 30 unit SUBCUT BID #15 ml 09/22/19 09/22/19 Unknown Rx mL) subcutaneous pen morphine 30 mg tablet,extended 30 mg PO Q12H 30 Days #60 tab 09/22/19 09/22/19 Unknown Rx release metoclopramide HCl [Reglan] 10 mg PO Q6H PRN #20 tab 10/01/19 Unknown Rx ondansetron 4 mg PO Q6H PRN #14 tab 10/01/19 Unknown Rx Allergies Allergy/AdvReac Type Severity Reaction Status Date / Time latex Allergy Severe ALGY-Anaphy Verified 09/22/19 15:07 laxis Penicillins Allergy Severe ALGY-Anaphy Verified 09/22/19 15:07 laxis sulfamethoxazole Allergy ADR-Itching Verified 09/22/19 15:07 [From Bactrim] trimethoprim [From Bactrim] Allergy ADR-Itching Verified 09/22/19 15:07 PFSH Acute PFSH: Medical History Chronic migraine without aura, intractable, with status migrainosus CVA (cerebral vascular accident) Received TPA 10/17 Fibromyalgia Gastroparesis Generalized anxiety disorder Multiple sclerosis Multiple sclerosis Painful diabetic neuropathy TIA (transient ischemic attack) Trochanteric bursitis of left hip Type 1 diabetes mellitus with complication Surgical History H/O carpal tunnel repair H/O shoulder surgery H/O: hysterectomy Hx of tubal ligation Family History (Updated 10/02/19 @ 03:30 by Alexx Cintron MD) Denies family history of Hyperlipidemia Hypertension Social History Smoking and tobacco status: current every day smoker cigarettes Packs smoked per day: 1 Alcohol intake: never History of recent travel: No Vitals/I&O/Wt Last Vital Signs Temp 98.2 F 10/01/19 22:51 Pulse 123 H 10/01/19 22:51 Resp 16 10/02/19 00:33 BP 132/67 10/01/19 22:51 Pulse Ox 99 10/01/19 22:51 10/01/19 10/01/19 10/02/19 14:59 22:59 06:59 Intake Total 1000 / 1000 Balance 1000 / 1000 Weight last 48 hrs Weight 72.575 kg Physical Exam Narrative: EXAM NARRATIVE: Head to toe examination EOMI, PERRLA, appears dehydrated patient in distress lying in her right lateral position Saturating well on room air Rectal temperature was taken which was 98.7 She has tenderness on deep palpation in mid epigastric and lower quadrant of the abdomen, bowel sounds sluggish S1, S2 sinus tachycardia Patient looks dehydrated Neurologically nonfocal exam Lungs are clear to auscultation Patient is in distress Awake alert oriented x3 GCS 15 Lower extremity without any signs of edema gangrene or ulcer Data : 10/01/19 22:30 10/01/19 22:30 A&P Assessment and plan (1) Hyperglycemia: Status: Acute (2) Intractable vomiting: Status: Acute Qualifiers: Nausea presence: with nausea Vomiting type: unspecified Qualified Code(s): R11.2 - Nausea with vomiting, unspecified (3) Acute dehydration: Status: Acute (4) Abdominal pain: Status: Acute Qualifiers: Abdominal location: generalized Qualified Code(s): R10.84 - Generalized abdominal pain (5) Type 1 diabetes mellitus with complication: Status: Acute Additional A&P Information Type 1 diabetes, hyperglycemia without DKA iNTractable nausea vomiting secondary to diabetic gastroparesis Ketones are positive most likely due to dehydration She is not acidotic at all I will start her on fluids, use Lantus once a day instead of twice a day along sliding scale to prevent going her into DKA I have requested troponin, EKG and chest x-ray Febrile episode without source identification CT abdomen concerning for bladder wall thickening, requested ultrasound abdomen Lactic acid I would keep her on ciprofloxacin and Flagyl for now She was spiking fever on doxycycline which was started for concern of tickborne illness by Dr. Zelaya We will get blood cultures No signs of sepsis on admission Rectal temperature 98.7 Dehydration secondary to multiple episode of emesis Fluid resuscitation, Multiple sclerosis No acute decompensation Full code DVT prophylaxis Lovenox N.p.o. Attestations Medical Necessity Statement*: Anticipating stay in the hospital cross to be less than 2 midnights currently need fluid resuscitation for intractable nausea vomiting and dehydration Time Spent in Patient Care: (>than 50% of time spent in counselling and/or direct pt care on unit) . 50 minutes Coding Level of Care Code [facility] Psychiatrist for Chg Fwd Diagnoses Hyperglycemia R73.9 Intractable vomiting R11.2 Nausea presence: with nausea Vomiting type: unspecified Acute dehydration E86.0 Abdominal pain R10.84 Abdominal location: generalized Type 1 diabetes mellitus with complication E10.8
[2019-10-02 02:57] LABS: Lactate (Lactic Acid level) 1.7 mmol/L (0.5-2.2)
[2019-10-02 02:58] LABS: Troponin T (5th) Once 32 ng/L (0-10)
[2019-10-02 03:30] LABS: Glucose Point of Care 367 mg/dL (70-110)
--- NOTE | 2019-10-02 03:36 | XR_ITS ---
WS: [id number] CHEST XRAY TECHNIQUE: Portable chest. CLINICAL INFORMATION: SOB COMPARISON: April 22, 2019 FINDINGS: Heart: Normal cardiac silhouette. Lungs: Mild chronic emphysematous changes. Mild interstitial thickening in the mid and lower lungs. N o focal pneumonia. Bones: Normal visualized bony structures. XR/XR chest 1V portable [id number] IMPRESSION: Mild interstitial thickening in the lung bases. No focal pneumonia.
--- NOTE | 2019-10-02 04:17 | PC.NURSE ---
Attempted to place patient in gown. Patient refused stated If I move I will throw up .
--- NOTE | 2019-10-02 05:36 | ECG_ITS ---
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 Measurements Intervals [place] Rate: 121 P: 62 AK: 123 QRS: 49 QRSD: 88 T: 51 QT: 338 QTc: 480 Interpretive Statements SINUS TACHYCARDIA NONSPECIFIC ST & T-WAVE ABNORMALITY ABNORMAL RHYTHM ECG Compared to ECG 10/09/2018 16:56:24 T-wave abnormality now present Sinus rhythm no longer present Electronically Signed On 10-02-2019 7:26:11 CDT by Wilmer Hilario M.D. [id number]
[2019-10-02] MEDS: metoclopramide 5 mg/mL SDV 2 mL IVP ×3 (05:49→19:13)
[2019-10-02] MEDS: enoxaparin 40 mg/0.4 mL Syringe SUBCUT (05:49)
[2019-10-02] MEDS: sodium chlor 0.9% + KCl 20 mEq 20 MEQ/1,000 ML BAG 75 MEQ IV ×2 (06:10→19:14)
[2019-10-02] MEDS: ciprofloxacin 400 MG/200 ML PREMIX 200 MG IV ×2 (06:10→18:14)
[2019-10-02 07:24] LABS: Troponin 5 2HR 37.01 ng/L (0-10)
[2019-10-02 07:34] LABS: Troponin 5 2HR Delta 5.01 ABS# (0-10)
[2019-10-02 07:38] LABS: Glucose Point of Care 326 mg/dL (70-110)
[2019-10-02] MEDS: metroNIDAZOLE IV 500 MG/100 ML PREMIX 100 MG IV ×2 (07:58→15:21)
[2019-10-02] MEDS: sucralfate 1 gm Tablet PO ×2 (08:02→22:02)
--- NOTE | 2019-10-02 09:44 | FL_ITS ---
WS: [id number] LUMBAR PUNCTURE CLINICAL INFORMATION: FUO, headache COMPARISON: None. TECHNIQUE: Informed consent: The procedure and its potential risk and complications were discussed with the priscilla ent. Verbal and written consent was obtained. Timeout: A timeout was performed to confirm correct patient, procedure, and site. Patient was prepped and draped in the usual sterile fashion. Lidocaine 1% was used for local anesthes ia. Utilizing fluoroscopic guidance, a 3.5 inch 22-gauge spinal needle was advanced into the subarach noid space at L4-5 via left oblique sublaminar approach. Free flow of clear CSF was obtained. 8 cc of CSF was collected and sent the lab for further analysis. FLUOROSCOPIC TIME: 0.1 minutes. FL/FL guided lumbarpunc dx* [id number] IMPRESSION: Fluoroscopically guided lumbar puncture. No immediate complications
[2019-10-02] MEDS: ondansetron 2 mg/ML SDV 2 mL 4 MG IVP ×2 (09:47→17:20)
--- NOTE | 2019-10-02 09:47 | CT_ITS ---
WS: [id number] CT HEAD TECHNIQUE: Noncontrast CT of the head obtained from the skullbase to the vertex. CLINICAL INFORMATION: fuo, headache COMPARISON: None. DLP: 762.[address] scans at [facility] use at least one of these dose optimization techniques: automat ed exposure control; mA and/or kV adjustment per patient size (includes targeted exams where dose is matched to clinical indication); or iterative reconstruction. FINDINGS: No evidence of intracranial hemorrhage or mass effect. Ventricular system and basal cisterns are hopkins nt. No extra-axial fluid collections. No evidence of mass or mass effect. Normal ventura-white different iation. Paranasal sinuses and mastoid air cells are well aerated. .Normal visualized soft tissues. CT/CT head wo con* [id number] IMPRESSION: 1. No evidence of intracranial hemorrhage or mass effect. 2. Mild mucosal thickening in the sphenoid sinuses. 3. No acute intracranial findings.
[2019-10-02 10:06] LABS: LAB Peripheral Smear Sent for Review
[2019-10-02 10:20] LABS: Troponin 5 6HR 39.14 ng/L (0-10)
[2019-10-02 10:21] LABS: Troponin 5 6HR Delta 7.14 ng/L (0-12)
--- NOTE | 2019-10-02 10:23 | ECG_ITS ---
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 Measurements Intervals [place] Rate: 118 P: 65 MT: 133 QRS: 51 QRSD: 81 T: -4 QT: 340 QTc: 478 Interpretive Statements SINUS TACHYCARDIA ST DEVIATION AND MODERATE T-WAVE ABNORMALITY, CONSIDER ANTEROLATERAL ISCHEMIA [-0.1+ mV T WAVE IN V3-V6] Compared to ECG 10/02/2019 06:30:18 Possible ischemia now present T-wave abnormality still present Electronically Signed On 10-03-2019 13:32:28 CDT by Norma Land M.D. [id number]
[2019-10-02 10:39] LABS: HIV 1 & 2 Antibody Non-Reactive (Non-Reactiv); HIV 1 & 2 Antigen Non-Reactive (Non-Reactiv)
[2019-10-02 10:44] LABS: Hepatitis A Antibody IgM Non-Reactive (Nonreactive); Hepatitis B Core IgM Non-Reactive (Nonreactive); Hepatitis B Surface Antigen Non-Reactive (Nonreactive); Hepatitis C Virus Antibody Non-Reactive (Nonreactive)
[2019-10-02 10:46] LABS: Erythrocyte Sedimentation Rate 21 mm/hr (0-15)
[2019-10-02] MEDS: morphine 4 mg/mL SDV 1 mL 2 MG IVP ×2 (10:47→16:23)
--- NOTE | 2019-10-02 12:11 | PM.CONSULT ---
Providers/Reason For Consult Consulting Physican/Specialty*: Dung Land MD/cardiology Reason for Consult*: Abnormal EKG/chest pain Attending Physician: Luis Brasher Primary Care Provider: Nathaniel Zelaya MD History of Present Illness History of Present Illness Viki Lobo is a 48 year old female,an extremely poor historian with a history of diabetes, questionable history of CVA, chronic pain syndrome and multiple sclerosis presenting with complaints of fever, headache, nausea and vomiting. She had a COVID test recently and was found to be negative. She denies any chest pain to me but apparently was complaining of chest pain to the admitting physician. She had no abdominal pain or dysuria. She had several bouts of vomiting. No dizziness or syncopal episode. She has history of chronic pain and migrainous headaches. She has been getting Botox injection with the neurology service. Apparently had a headache is different from the usual headache that she has been getting. She denies any IV drug abuse. She has been taking methadone for pain and lately it was switched to morphine. She has no previous history for coronary disease, myocardial infarction or congestive heart failure. No significant family history for atherosclerotic heart disease. Patient extremely poor historian Review of Systems Narrative: CONSTITUTIONAL: Has been having fever for the last to 3 weeks. EYES: No blurring of vision or other visual disturbances lately. ENT: No hoarseness of voice, auditory disturbances or sore throat. CARDIOVASCULAR: As mentioned above. RESPIRATORY: No significant cough. GASTROINTESTINAL: Nausea and vomiting as mentioned above GENITOURINARY: No dysuria or hematuria. INTEGUMENTARY: No skin rashes or history of skin cancer. NEURO: Severe headache as mentioned above PSYCHIATRIC: No history of psychosis or major depression. HEMATOLOGIC: No bleeding disorders or significant anemia. ENDOCRINE: History of diabetes MUSCULOSKELETAL: Chronic aches and pains involving all the joints. On morphine. ALLERGY/IMMUNOLOGY: As mentioned above. Meds/Allergies Home Medications and Allergies Home Medications Medication Instructions Recorded Confirmed Last Taken Type aspirin 81 mg tablet,delayed 81 mg PO DAILY tab 04/22/19 09/22/19 05/07/19 History release diphenhydramine HCl 25 mg capsule 25 mg PO BID PRN cap 04/22/19 09/22/19 Unknown History ipratropium bromide 42 mcg (0.06 2 spray INTRANASAL TID 04/22/19 09/22/19 05/07/19 History %) nasal spray metoprolol tartrate 25 mg tablet 12.5 mg PO BID 90 Days #90 tab 04/22/19 09/22/19 05/08/19 Rx nitroglycerin 0.4 mg sublingual 0.4 mg SUBLINGUAL Q5M PRN 04/22/19 09/22/19 Unknown History tablet sucralfate 1 gram tablet 1 gm PO .COMPLEX 04/22/19 09/22/19 05/07/19 History sumatriptan succinate 100 mg tablet 100 mg PO DAILY PRN tab 04/22/19 09/22/19 Unknown History topiramate 100 mg tablet 100 mg PO BID 90 Days #180 tab 04/22/19 09/22/19 05/07/19 Rx insulin aspart U-100 100 unit/mL 5 unit SUBCUT TID #15 ml 04/27/19 09/22/19 05/07/19 Rx (3 mL) subcutaneous pen tizanidine 4 mg PO Q6H PRN 05/07/19 09/22/19 Unknown History pantoprazole 40 mg PO DAILY 05/08/19 09/22/19 05/07/19 History famotidine 20 mg tablet 20 mg PO DAILY #30 tab 06/18/19 09/22/19 Unknown Rx metoclopramide HCl 10 mg tablet 10 mg PO TID #90 tab 06/18/19 09/22/19 Unknown Rx pregabalin 75 mg capsule 75 mg PO TID #90 cap MDD 3 07/13/19 09/22/19 Unknown Rx furosemide 20 mg tablet 10 mg PO QAM #10 tab 07/30/19 09/22/19 Unknown Rx desvenlafaxine 100 mg 100 mg PO DAILY #90 tab 09/22/19 09/22/19 Unknown Rx tablet,extended release 24 hour doxycycline hyclate 100 mg capsule 100 mg PO BID #10 cap 09/22/19 09/22/19 Unknown Rx insulin glargine 100 unit/mL (3 30 unit SUBCUT BID #15 ml 09/22/19 09/22/19 Unknown Rx mL) subcutaneous pen morphine 30 mg tablet,extended 30 mg PO Q12H 30 Days #60 tab 09/22/19 09/22/19 Unknown Rx release metoclopramide HCl [Reglan] 10 mg PO Q6H PRN #20 tab 10/01/19 Unknown Rx ondansetron 4 mg PO Q6H PRN #14 tab 10/01/19 Unknown Rx Allergies Allergy/AdvReac Type Severity Reaction Status Date / Time latex Allergy Severe ALGY-Anaphy Verified 09/22/19 15:07 laxis Penicillins Allergy Severe ALGY-Anaphy Verified 09/22/19 15:07 laxis sulfamethoxazole Allergy ADR-Itching Verified 09/22/19 15:07 [From Bactrim] trimethoprim [From Bactrim] Allergy ADR-Itching Verified 09/22/19 15:07 Current Medications Current Medications Generic Name Dose Route Start Last Admin Trade Name Freq PRN Reason Stop Dose Admin Aspirin 81 mg 10/02/19 09:00 10/02/19 09:58 Aspirin Ec PO Not Given DAILY ANGE Enoxaparin Sodium 40 mg 10/02/19 05:36 10/02/19 05:49 Lovenox SUBCUT 40 mg Q24H ANGE Administration Potassium Chloride/Sodium Chloride 20 meq in 1,000 mls @ 75 mls/hr 10/02/19 05:36 10/02/19 06:10 Sodium Chlor 0.9% + Kcl 20 Meq IV 75 mls/hr .[id number] ANGE Administration Ciprofloxacin/Dextrose 400 mg in 200 mls @ 200 mls/hr 10/02/19 06:00 10/02/19 07:10 Cipro IV Infused Q12H ANGE Infusion Protocol Metronidazole 500 mg in 100 mls @ 100 mls/hr 10/02/19 07:00 10/02/19 08:58 Flagyl Iv IV Infused Q8H ANGE Infusion Protocol Insulin Aspart 0 unit 10/02/19 08:00 10/02/19 08:02 Novolog SUBCUT 8 unit WM&BEDTIME ANGE Administration Protocol Metoclopramide HCl 5 mg 10/02/19 05:36 10/02/19 12:03 Reglan IVP 5 mg Q4H PRN Administration vomit Metoprolol Tartrate 12.5 mg 10/02/19 09:00 10/02/19 09:58 Lopressor PO Not Given BID ANGE Morphine Sulfate 2 mg 10/02/19 10:22 10/02/19 10:47 Morphine IVP 2 mg Q4H PRN Administration SEVERE PAIN Ondansetron HCl 4 mg 10/02/19 09:19 10/02/19 09:47 Zofran IVP 4 mg Q4H PRN Administration NAUSEA AND VOMITING Sucralfate 1 gm 10/02/19 07:00 10/02/19 12:03 Carafate PO Not Given AC&BEDTIME ANGE Topiramate 100 mg 10/02/19 09:00 10/02/19 09:58 Topamax PO Not Given BID ANGE PFSH Acute PFSH: Medical History Chronic migraine without aura, intractable, with status migrainosus CVA (cerebral vascular accident) Received TPA 10/17 Fever of unknown origin Fibromyalgia Gastroparesis Generalized anxiety disorder Multiple sclerosis Multiple sclerosis Painful diabetic neuropathy TIA (transient ischemic attack) Trochanteric bursitis of left hip Type 1 diabetes mellitus with complication Surgical History H/O carpal tunnel repair H/O shoulder surgery H/O: hysterectomy Hx of tubal ligation Family History Denies family history of Hyperlipidemia Hypertension Social History Smoking and tobacco status: current every day smoker cigarettes Packs smoked per day: 1 Alcohol intake: never History of recent travel: No Vitals/I&O/Wt Last Vital Signs Temp 98.1 F 10/02/19 05:45 Pulse 118 H 10/02/19 10:23 Resp 18 10/02/19 10:47 BP 106/71 10/02/19 10:00 Pulse Ox 100 10/02/19 10:47 10/01/19 10/02/19 10/02/19 22:59 06:59 14:59 Intake Total 1999 300 / 300 Balance 1999 300 / 300 Weight last 48 hrs Weight 160 lb Physical Exam Narrative: EXAM NARRATIVE: GENERAL: The patient appears to be very drowsy. Answers to the questions mostly by yes or no. She is not in any acute distress. HEENT: No significant pallor, icterus or lymphadenopathy. The fundus is not visualized NECK: Trachea appears to be central. No masses noted. No JVD or thyromegaly appreciated. No carotid bruit. RESPIRATORY: Chest is symmetrical. No intercostals muscle retraction or any accessory muscle activation. There is no chest wall tenderness. Breath sounds are heard bilaterally. No rales or rhonchi heard. No evidence of any consolidation. BREASTS: Deferred. HEART: The PMI is in the 5th left intercostals space just inside the midclavicular line. No palpable precordial events. S1 and S2 are normal. No S3 or S4 heard. No pericardial rub or any click heard. ABDOMEN: No vessel pulsations or distention. No tenderness. No organomegaly appreciated. No abdominal bruit. Bowel sounds are normally heard. : Deferred. RECTAL: Deferred. LYMPHATIC: No lymphadenopathy noted in the neck . EXTREMITIES: No edema or cyanosis. No clubbing. The pulses are symmetrical bilaterally. The radial, femoral, dorsalis pedis and the posterior tibial pulses are palpated and found to be in good volume and amplitude. MUSCULOSKELETAL: No acute joint deformities or swelling SKIN: Extensive skin abrasions in the upper and lower extremities. NEUROPSYCHIATRIC: Appears very drowsy. No focal motor deficits. Data Labs: Other Labs: Laboratory Last Values WBC 18.0 10^3/uL (4.0 -10.0) H 10/01/19 22:30 RBC 4.56 10^6/uL (4.1 -5.3) 10/01/19 22:30 Hgb 15.2 g/dL (11.5-1 5.3) 10/01/19 22:30 Hct 46.0 % (37.0-47.0 ) 10/01/19 22:30 MCV 100.9 fL (81-99) H 10/01/19 22:30 MCH 33.3 pg (28.0-34. 0) 10/01/19 22:30 MCHC 33.0 g/dL (30.0-3 6.0) 10/01/19 22:30 RDW 12.5 % (12.1-15.1 ) 10/01/19 22: Plt Count 486 10^3/cmm (130 -400) H 10/01/19 22:30 MPV 10.9 fL (7.4-10.4 ) H 10/01/19 22: Neut % (Auto) 85.2 % 10/01/19 22:30 Lymph % (Auto) 9.3 % 10/01/19 22:30 Colbert % (Auto) 4.7 % 10/01/19 22:30 Eos % (Auto) 0.0 % 10/01/19 22:30 Baso % (Auto) 0.2 % 10/01/19 22:30 Neut # (Auto) 15.3 10^3/uL (1.8 -7.7) H 10/01/19 22:30 Lymph # (Auto) 1.7 10^3/uL (0.8- 4.8) 10/01/19 22:30 Colbert # (Auto) 0.8 10^3/uL (0.2- 0.9) 10/01/19 22:30 Eos # (Auto) 0.0 10^3/uL (0.0- 0.8) 10/01/19 22:30 Baso # (Auto) 0.0 10^3/uL (0.0- 0.1) 10/01/19 22:30 Nucleated RBC % (a uto) 0 % 10/01/19 22:30 Nucleated RBCs # 0.0 /100WBC 10/01/19 22:30 ESR 21 mm/hr (0-15) H 10/02/19 09:47 Specimen Type Arterial 10/02/19 01:50 Sample Site Radial, right 10/02/19 01:50 ABG pH 7.41 (7.35-7.45) 10/02/19 01:50 ABG pCO2 29.2 mmHg (35-45) L 10/02/19 01:50 ABG pO2 81.1 mmHg (80.0-1 00.0) 10/02/19 01:50 ABG HCO3 18.6 mmol/L (22-2 6) L 10/02/19 01:50 ABG Base Excess -4.7 mmol/L (-2.0 -2.0) L 10/02/19 01:50 Prem Test Pos 10/02/19 01:50 Hematocrit 44.4 % (37-47) 10/02/19 01:50 O2 Delivery Device Room air 10/02/19 01:50 Medical Sales Consultant ID [email or web address] 10/02/19 01:50 Sodium 146 mmol/L (136-1 45) H 10/01/19 22:30 Potassium 3.6 mmol/L (3.5-5 .1) 10/01/19 22:30 Chloride 99 mmol/L (98-107 ) 10/01/19 22:30 Carbon Dioxide 20 mmol/L (22-29) L 10/01/19 22:30 Anion Gap 30.6 (5-19) H 10/01/19 22:30 BUN 17 mg/dL (6-20) 10/01/19 22:30 Creatinine 0.8 mg/dL (0.5-0. 9) 10/01/19 22:30 GFR Calculation 76.2 mL/min (90-1 30) L 10/01/19 22:30 Glucose 467 mg/dL (65-115 ) H 10/01/19 22:30 POC Glucose 326 mg/dL (70-110 ) 10/02/19 05:47 Calculated Osmolal ity 319 mOsm/kg (285- 295) H 10/01/19 22:30 Lactate 1.7 mmol/L (0.5-2 .2) 10/02/19 02:18 Calcium 10.0 mg/dL (8.5-1 0.5) 10/01/19 22:30 Total Bilirubin 0.5 mg/dL (0.15-1 .2) 10/01/19 22:30 AST 11 U/L (0-32) 10/01/19 22:30 ALT 16 U/L (0-33) 10/01/19 22:30 Alkaline Phosphata se 195 IU/L (35-105) H 10/01/19 22:30 Troponin I 6 Hour 39.14 ng/L (0-10) H 10/02/19 09:47 Troponin I Hi Sens Del 7.14 ng/L (0-12) 10/02/19 09:47 Troponin T Gen 5 n g/L 32 ng/L (0-10) H 10/02/19 02:18 Troponin T 120 Min [place] 37.01 ng/L (0-10) H 10/02/19 07:00 Delta Troponin T 5.01 ABS# (0-10) 10/02/19 07:00 C-Reactive Protein 28.0 mg/L (0.0-4. 9) H 10/02/19 09:47 Total Protein 7.7 g/dL (6.6-8.7 ) 10/01/19 22:30 Albumin 4.3 g/dL (3.5-5.2 ) 10/01/19 22:30 Globulin 3.4 g/dL (1.3-4.6 ) 10/01/19 22:30 Lipase 81 U/L (13-60) H 10/01/19 22:30 Serum Ketones Positive (Negati ve) H 10/01/19 22:30 Hepatitis A IgM Ab Non-reactive (No nreactive) 10/02/19 09:47 Hep Bs Antigen Non-reactive (No nreactive) 10/02/19 09:47 Hep B Core IgM Ab Non-reactive (No nreactive) 10/02/19 09:47 Hepatitis C Antibo dy Non-reactive (No nreactive) 10/02/19 09:47 HIV 1&2 Ab & HIV 1 Ag Non-reactive (No n-Reactiv) 10/02/19 09:47 HIV 1&2 Antibody Non-reactive (No n-Reactiv) 10/02/19 09:47 Micro: Micro: Microbiology 10/02/19 09:50 Blood Culture - Pr eliminary Blood SPECIMEN COLLE ANIL 10/02/19 09:47 Blood Culture - Pr eliminary Blood SPECIMEN [facility] A&P Assessment and plan (1) Abnormal EKG: The patient is EKG showed sinus tachycardia with a diffuse nonspecific ST-T changes. This may suggest underlying coronary ischemia. In view of her multiple risk factors, she carries a high risk for coronary artery disease. The EKG changes also could be nonspecific. At this point, I may start her on a low-dose of beta-maynor. Because of the relatively low blood pressure, I may start her on metoprolol 12.5 mg p.o. twice daily. An echocardiogram would be helpful to evaluate the LV function and to rule out any other pathology. This may be done as early as possible. There is no evidence of pericarditis at this time Status: Acute (2) Elevated troponin: Most likely this is related to type II myocardial infarction. I may hold off any medication at this time. Status: Acute (3) Type 1 diabetes mellitus with complication: Patient is on insulin. Continue the management as per the primary care. Status: Acute (4) Fever of unknown origin: The etiology is not clear at this time. So far no source could be identified. In view of her headache and nausea, a INDUSTRIAL SALES MANAGER pathology cannot be excluded. She is being considered for lumbar puncture. Status: Acute Additional A&P Information After reviewing the echocardiogram and also based on the patient clinical progress, further recommendations will be made. Thank you for the opportunity to eval this patient and make these recommendations. Consult Attestations Medical Necessity Statement: Patient requires continued hospital stay for close monitoring and further management Coding Level of Care Code Acute Forensic Engineer for [facility] Fwd Diagnoses Abnormal EKG R94.31 Elevated troponin R79.89 Type 1 diabetes mellitus with complication E10.8 Fever of unknown origin R50.9
[2019-10-02 12:54] LABS: Glucose Point of Care 192 mg/dL (70-110)
[2019-10-02 14:59] LABS: CSF Mononuclear # 0.003 10^3/uL (50-90); Mononuclear WBC CSF % 100 % (50-90); Polynuclear WBC CSF % 0 % (0-10); Red Blood Cell CSF 0 10^3/uL (0-0); White Blood Cell CSF 3 /uL (0-5)
[2019-10-02 15:03] LABS: Appearance CSF CLEAR (CLEAR); Color CSF COLORLESS (COLORLESS); Pathology Referral Yes
[2019-10-02 15:17] LABS: Glucose CSF 168 mg/dL (40-70); Total Protein CSF 34 mg/dL (15-45)
--- NOTE | 2019-10-02 16:03 | ECG_ITS ---
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 Measurements Intervals [place] Rate: 119 P: 65 IN: 128 QRS: 55 QRSD: 89 T: -5 QT: 340 QTc: 478 Interpretive Statements Sinus tachycardia rate [address]-T changes. Electronically Signed On 10-03-2019 13:59:26 CDT by Norma Land M.D. [email or web address]
[2019-10-02 16:10] LABS: Glucose Point of Care 197 mg/dL (70-110)
[2019-10-02 16:26] LABS: Troponin(5th) Baseline 30 ng/L (0-10)
[2019-10-02 17:53] LABS: Add Urine Microscopic? YES; Bilirubin Urine Neg (NEGATIVE); Blood Urine 3+ (Negative); Glucose Urine UA 4+ (Normal); Ketones Urine 2+ (Negative); Leukocyte Esterase Urine Negative (Negative); Nitrate Urine Negative (Negative); Protein Urine Trace (Negative); Urine Appearance Hazy (CLEAR); Urine Color Yellow (Yellow); Urobilinogen Urine Norm (Negative); pH Urine 5 (5-7)
[2019-10-02 17:54] LABS: Bacteria Urine 3+; WBC Urine 0-4 /hpf (0-5)
[2019-10-02 17:55] LABS: Add Urine Culture? Yes
[2019-10-02 18:22] LABS: Glucose Point of Care 101 mg/dL (70-110)
--- NOTE | 2019-10-02 19:01 | PC.NURSE ---
CALLED LAB AT 1900 DUE TO NO RESULT FROM 1630 TROPONIN LEVEL; WAS INFORMED THAT TROPONIN WAS CANCELLED DUE TO PROVIDER WANTING ONLY A 6 HOUR AT 1600, NOT SERIAL TROPONINS TIMED FROM 0947; THIS RN REORDERED THE TROPONIN THE 1600 WAS CANCELLED; WILL CONTINUE TO MONITOR
[2019-10-02 19:46] LABS: Troponin T (5th) Once 32 ng/L (0-10)
[2019-10-02 20:39] LABS: Glucose Point of Care 310 mg/dL (70-110)
[2019-10-02 20:50] LABS: Glucose Point of Care 241 mg/dL (70-110)
--- NOTE | 2019-10-02 21:15 | PM.PN ---
Subjective Subjective: Interval history: She is nauseated, unable to tolerate food or drink. With central abdominal pain. Right upper quadrant tenderness on palpation. She reports fevers for the past month on and off ranging between 99 and 101. Today also having sharp left-sided chest pain. Also noted several episodes of watery diarrhea. Dark stools. Reports severe headache, although with history of migraines. Photophobia. Vitals/I&O/Wt Last Vital Signs Temp 98 F 10/02/19 20:09 Pulse 115 H 10/02/19 20:09 Resp 18 10/02/19 20:09 BP 133/75 10/02/19 20:09 Pulse Ox 96 10/02/19 20:09 10/02/19 10/02/19 10/02/19 06:59 14:59 22:59 Intake Total 1999 300 / 300 1280 / 1580 Output Total 250 / 250 Balance 1999 300 / 300 1030 / 1330 Weight last 48 hrs Weight 72.575 kg Physical Exam Const: COMMON NORMALS: patient oriented x3 OTHER: In discomfort secondary to nausea. [place] beside her in bed. HENMT: COMMON NORMALS: oropharynx normal Neck/C-Spine: COMMON NORMALS: no JVD Resp: COMMON NORMALS: normal respiratory effort and clear to auscultation bilaterally AUSCULTATION: clear to auscultation bilaterally Cardio: COMMON NORMALS: no JVD, regular rhythm, S1 normal heart sound present, S2 normal heart sound present and No murmurs present (Cardio) RHYTHM: regular rhythm HEART SOUNDS: S1 normal heart sound present and S2 normal heart sound present GI: COMMON NORMALS: Normal to inspection, nondistended, normoactive bowel sounds present and Soft to palpation PALPATION: Yes Soft to palpation and Yes Tenderness to palpation present (GI) Details: RUQ Extremity: COMMON NORMALS: no joint enlargement and no pedal edema Neuro: COMMON NORMALS: patient oriented x3 and moves all extremities Skin: COMMON NORMALS: no rashes or lesions noted GENERAL SKIN EXAM: no rashes or lesions noted Data : 10/01/19 22:30 10/01/19 22:30 Micro: Microbiology 10/02/19 14:32 Gram Stain - Final Cerebrospinal Fluid 10/02/19 09:50 Blood Culture - Preliminary Blood SPECIMEN COLLECTED 10/02/19 09:47 Blood Culture - Preliminary Blood SPECIMEN COLLECTED A&P Assessment and plan (1) Fever of unknown origin: Reports malaise and fevers between 99 and 101 for about a month on and off. Reports that discussed previously with her primary care provider, and he treated her for 5 days with doxycycline for possible tickborne illness. Tick panel was not sent out. Multiple complaints today, including mid abdominal pain, although tender on palpation of right upper quadrant. Persistent nausea, intermittent vomiting, no oral intake. Starvation ketosis. Dehydration. Headache. LP obtained, not suspicious of infection. Does have recurrent migraines. Today episode of chest pain. Sharp, left-sided. With EKG changes with some ST depression. Mild troponin elevation. Echocardiogram ordered. Appreciate cardiology assessment. Does not appear to have myopericarditis. Ultrasound of right upper quadrant unremarkable. With right upper quadrant tenderness, gallbladder dilation, HIDA scan was ordered for confirmation to exclude possible cholecystitis. Notified by NM bench lay out technician she could not tolerate HIDA scan as he is not able to take anything by mouth. Ordered MRCP. Requested HIV, hepatitis panel which are negative. She was previously checked for rapid flu, COVID-19 on 09/01 which were negative. Requested tick panel. Follow blood cultures. Due to diarrhea requested bacterial panel, O&P, C. difficile. CRP with elevation of 28, ESR with only mild elevation at 21. Will request JUAN. For now we will not change antibiotics, continue Cipro and Flagyl. Due to possible sepsis with high leukocytosis of 18,000, sinus tachycardia, blood cultures obtained, lactic acid checked and normal. Status: Acute (2) Intractable vomiting: Possible gastritis, at this time also cannot exclude entirely cholecystitis, although seems less likely. Add PPI twice daily. Continue sucralfate. Continue supportive hydration. Hold off on initiation of TPN for now given possible ongoing infection. 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 Denies ever having upper endoscopy. Has had a colonoscopy. May benefit from EGD given persistent/recurrent dyspepsia. History of smoking. Status: Acute Qualifiers: Nausea presence: with nausea Vomiting type: unspecified Qualified Code(s): R11.2 - Nausea with vomiting, unspecified (3) Hyperglycemia: Likely stress-induced. Continue insulin. Status: Acute (4) Acute dehydration: Continue IV hydration. Status: Acute (5) Abdominal pain: Lipase only mildly elevated likely due to vomiting. She reports midabdominal pain, but pain is actually in right upper quadrant palpation. As above. Status: Acute Qualifiers: Abdominal location: generalized Qualified Code(s): R10.84 - Generalized abdominal pain (6) Type 1 diabetes mellitus with complication: Status: Acute (7) Chest pain: Episode of sharp left-sided chest pain, with noted mild troponin elevation without rise, but with EKG changes with ST depression. Appreciate cardiology evaluation. May benefit from additional risk stratification/assessment for coronary disease once she is able to undergo stress testing. Appreciate cardiac medicine adjustment. Status: Acute (8) Diarrhea: As above Status: Acute (9) Melanotic stools: Check Hemoccult. Start PPI. She says occasionally used to take ibuprofen, but has not taken about a month. Status: Acute Additional A&P Information Multiple sclerosis Attestations Medical Necessity Statement*: Requiring admission of over 2 midnights for assessment of management however fever of unknown origin of about 1 month duration, intractable nausea, vomiting, inability to tolerate food or drink. Diarrhea, chest pain, possible GI bleed. Coding Level of Care Code Acute Police Chief Deputy for [facility] Fwd Diagnoses Fever of unknown origin R50.9 Intractable vomiting R11.2 Nausea presence: with nausea Vomiting type: unspecified Hyperglycemia R73.9 Acute dehydration E86.0 Abdominal pain R10.84 Abdominal location: generalized Type 1 diabetes mellitus with complication E10.8 Chest pain R07.9 Diarrhea R19.7 Melanotic stools K92.1
[2019-10-02] MEDS: insulin glargine 100 units/1 mL 30 UNIT SUBCUT (22:03)
[2019-10-02] MEDS: SUMAtriptan 25 mg Tablet 100 MG PO (22:48)
[2019-10-02 23:39] LABS: Glucose Point of Care 191 mg/dL (70-110)
[2019-10-03] VITALS (10 sets, daily range): BP systolic 118–154; BP diastolic 69–112; PULSE 81–108; RESP 14–20; TEMP 35.9–37.1; O2SAT 91–98
[2019-10-03] MEDS: metroNIDAZOLE IV 500 MG/100 ML PREMIX 100 MG IV ×4 (00:04→22:28)
[2019-10-03 01:46] LABS: Glucose Point of Care 114 mg/dL (70-110)
[2019-10-03] MEDS: morphine 4 mg/mL SDV 1 mL 2 MG IVP ×3 (02:26→19:37)
[2019-10-03] MEDS: ondansetron 2 mg/ML SDV 2 mL 4 MG IVP (02:29)
[2019-10-03] MEDS: LORazepam 2 mg/mL INJ 1 mL 0.5 MG IVP (03:08)
[2019-10-03] MEDS: metoclopramide 5 mg/mL SDV 2 mL IVP ×3 (05:18→18:20)
[2019-10-03] MEDS: ciprofloxacin 400 MG/200 ML PREMIX 200 MG IV ×2 (05:19→18:20)
[2019-10-03 06:36] LABS: Basophils % 0.2 %; Eosinophils % 0.1 %; Hematocrit 39.4 % (37.0-47.0); Hemoglobin 12.7 g/dL (11.5-15.3); Lymphocytes # 2.1 10^3/uL (0.8-4.8); Lymphocytes % 11.8 %; Mean Corpuscular HGB Conc 32.2 g/dL (30.0-36.0); Mean Corpuscular Hemoglobin 33.8 pg (28.0-34.0); Mean Corpuscular Volume 104.8 fL (81-99); Mean Platelet Volume 10.8 fL (7.4-10.4); Monocytes # 1.4 10^3/uL (0.2-0.9); Monocytes % 7.9 %; Neutrophils # 13.9 10^3/uL (1.8-7.7); Neutrophils % 79.5 %; Nucleated Red Blood Cells % 0 %; Platelet Count 356 10^3/cmm (130-400); Red Blood Count 3.76 10^6/uL (4.1-5.3); Red Cell Distribution Width 12.6 % (12.1-15.1); White Blood Count 17.4 10^3/uL (4.0-10.0)
[2019-10-03] MEDS: sucralfate 1 gm Tablet PO ×4 (06:40→22:28)
[2019-10-03 06:53] LABS: Alanine Aminotransferase 20 U/L (0-33); Albumin Level 3.5 g/dL (3.5-5.2); Alkaline Phosphatase 134 IU/L (35-105); Anion Gap 12.1 (5-19); Aspartate Amino Transferase 33 U/L (0-32); Blood Urea Nitrogen 12 mg/dL (6-20); Calcium 8.4 mg/dL (8.5-10.5); Carbon Dioxide 28 mmol/L (22-29); Chloride 112 mmol/L (98-107); Globulin 2.8 g/dL (1.3-4.6); Glomerular Filtration Rate 106.3 mL/min (90-130); Glucose 128 mg/dL (65-115); Osmolality Calculated 306 mOsm/kg (285-295); Potassium 3.1 mmol/L (3.5-5.1); Sodium 149 mmol/L (136-145); Total Bilirubin 0.4 mg/dL (0.15-1.2); Total Protein 6.3 g/dL (6.6-8.7)
[2019-10-03 07:35] LABS: Glucose Point of Care 126 mg/dL (70-110)
--- NOTE | 2019-10-03 08:15 | P.PN_ITS ---
Subjective Subjective: Interval history: The patient is feeling little better today. She had the CT of the head and a lumbar puncture yesterday. The CT scan was unremarkable. Lumbar puncture studies are so far unremarkable. Patient denies any chest pain or shortness of breath. She had echocardiogram this morning which revealed a normal LV size ejection fraction with no significant wall mot ion normalities. No significant pericardial effusion. Medications: Reviewed: Yes Medication Review Details: Current Medications Aspirin (Aspirin Ec) 81 mg PO DAILY ANGE Last Admin: 10/02/19 09:58 Dose: Not Given Documented by: Dextrose (D50w) 25 ml IVP ONCE PRN; Protocol PRN Reason: hypoglycemia protocol Dextrose (D50w) 50 ml IVP PRN PRN; Protocol PRN Reason: hypoglycemia protocol Enoxaparin Sodium (Lovenox) 40 mg SUBCUT Q24H ANGE Last Admin: 10/02/19 05:49 Dose: 40 mg Documented by: Glucagon (Glucagen) 1 mg IM ONCE PRN; Protocol PRN Reason: Adult Acute Hypoglycemia Prot. Dextrose (D5w) 500 mls @ 100 mls/hr IV ONCE PRN; Protocol PRN Reason: Adult Acute Hypoglycemia Prot Potassium Chloride/Sodium Chloride (Sodium Chlor 0.9% + Kcl 20 Meq) 20 meq in 1,000 mls @ 75 mls/hr IV .[id number] ANGE Last Admin: 10/02/19 19:14 Dose: 75 mls/hr Documented by: Ciprofloxacin/Dextrose (Cipro) 400 mg in 200 mls @ 200 mls/hr IV Q12H ANGE; Protocol Last Admin: 10/03/19 05:19 Dose: 200 mls/hr Documented by: Metronidazole (Flagyl Iv) 500 mg in 100 mls @ 100 mls/hr IV Q8H ANGE; Protocol Last Admin: 10/03/19 06:40 Dose: 100 mls/hr Documented by: Insulin Aspart (Novolog) 0 unit SUBCUT WM&BEDTIME ANGE; Protocol Last Admin: 10/02/19 22:02 Dose: 10 unit Documented by: Insulin Glargine (Lantus) 30 unit SUBCUT BEDTIME ANGE Last Admin: 10/02/19 22:03 Dose: 30 unit Documented by: Metoclopramide HCl (Reglan) 5 mg IVP Q4H PRN PRN Reason: vomit Last Admin: 10/03/19 05:18 Dose: 5 mg Documented by: Metoprolol Tartrate (Lopressor) 12.5 mg PO BID [facility] Last Admin: 10/02/19 18:27 Dose: Not Given Documented by: Morphine Sulfate (Morphine) 2 mg IVP Q4H PRN PRN Reason: SEVERE PAIN Last Admin: 10/03/19 02:26 Dose: 2 mg Documented by: Nicotine (Nicoderm 21 Mg Patch) 1 patch TRANSDERMA DAILY [facility] Nitroglycerin (Nitrostat) 0.4 mg SUBLINGUAL Q5M PRN PRN Reason: CHEST PAIN Non-Formulary Medication (Famotidine) 20 mg PO DAILY [facility] Ondansetron HCl (Zofran) 4 mg IVP Q4H PRN PRN Reason: NAUSEA AND VOMITING Last Admin: 10/03/19 02:29 Dose: 4 mg Documented by: Pantoprazole Sodium (Protonix) 40 mg IVP Q12H [facility] Last Admin: 10/02/19 22:25 Dose: 40 mg Documented by: Sucralfate (Carafate) 1 gm PO AC&BEDTIME [facility] Last Admin: 10/03/19 06:40 Dose: 1 gm Documented by: Sumatriptan Succinate (Imitrex) 100 mg PO DAILY PRN PRN Reason: Migraine Headache Last Admin: 10/02/19 22:48 Dose: 100 mg Documented by: Tizanidine HCl (Zanaflex) 4 mg PO Q6H PRN PRN Reason: Muscle Spasm Topiramate (Topamax) 100 mg PO BID [facility] Last Admin: 10/02/19 18:27 Dose: Not Given Documented by: Vitals/I&O/Wt Last Vital Signs Temp 98.2 F 10/03/19 04:00 Pulse 103 H 10/03/19 04:00 Resp 18 10/03/19 04:00 BP 134/75 10/03/19 04:00 Pulse Ox 94 10/03/19 04:00 10/02/19 10/03/19 10/03/19 22:59 06:59 14:59 Intake Total 1280 / 1580 100 / 1680 Output Total 250 / 250 200 / 450 Balance 1030 / 1330 -100 / 1230 Weight last 48 hrs Weight 160 lb Physical Exam Narrative: EXAM NARRATIVE: GENERAL: The patient appears to be very sleepy today. Answers to the questions mostly by yes or no. She is not in any acute distress. HEENT: No significant pallor, icterus or lymphadenopathy. NECK: Trachea appears to be central. No masses noted. No JVD or thyromegaly appreciated. No carotid bruit. RESPIRATORY: Chest is symmetrical. No intercostals muscle retraction or any accessory muscle activation. There is no chest wall tenderness. Breath sounds are heard bilaterally. No rales or rhonchi heard. No evidence of any consolidation. BREASTS: Deferred. HEART: T the heart sounds are normal. No S3 or S4. No significant murmurs. ABDOMEN: No vessel pulsations or distention. No tenderness. No organomegaly appreciated. No abdominal bruit. Bowel sounds are normally heard. : Deferred. RECTAL: Deferred. LYMPHATIC: No lymphadenopathy noted in the neck . EXTREMITIES: No edema or cyanosis. No clubbing. The pulses are symmetrical bilaterally. The radial, femoral, dorsalis pedis and the posterior tibial pulses are palpated and found to be in good volume and amplitude. MUSCULOSKELETAL: No acute joint deformities or swelling SKIN: Extensive skin abrasions in the upper and lower extremities. NEUROPSYCHIATRIC: Appears very drowsy. No focal motor deficits. Data : 10/03/19 05:10 10/03/19 05:10 Other Labs: Laboratory Last Values WBC 17.4 10^3/uL (4.0-10.0) H 10/03/19 05:10 RBC 3.76 10^6/uL (4.1-5.3) L 10/03/19 05:10 Hgb 12.7 g/dL (11.5-15.3) 10/03/19 05:10 Hct 39.4 % (37.0-47.0) 10/03/19 05:10 MCV 104.8 fL (81-99) H 10/03/19 05:10 MCH 33.8 pg (28.0-34.0) 10/03/19 05:10 MCHC 32.2 g/dL (30.0-36.0) 10/03/19 05:10 RDW 12.6 % (12.1-15.1) 10/03/19 05:10 Plt Count 356 10^3/cmm (130-400) 10/03/19 05:10 MPV 10.8 fL (7.4-10.4) H 10/03/19 05:10 Neut % (Auto) 79.5 % 10/03/19 05:10 Lymph % (Auto) 11.8 % 10/03/19 05:10 [place] % (Auto) 7.9 % 10/03/19 05:10 Eos % (Auto) 0.1 % 10/03/19 05:10 Baso % (Auto) 0.2 % 10/03/19 05:10 Neut # (Auto) 13.9 10^3/uL (1.8-7.7) H 10/03/19 05:10 Lymph # (Auto) 2.1 10^3/uL (0.8-4.8) 10/03/19 05:10 [place] # (Auto) 1.4 10^3/uL (0.2-0.9) H 10/03/19 05:10 Eos # (Auto) 0.0 10^3/uL (0.0-0.8) 10/03/19 05:10 Baso # (Auto) 0.0 10^3/uL (0.0-0.1) 10/03/19 05:10 Nucleated RBC % (auto) 0 % 10/03/19 05:10 Nucleated RBCs # 0.0 /100WBC 10/03/19 05:10 ESR 21 mm/hr (0-15) H 10/02/19 09:47 Specimen Type Arterial 10/02/19 01:50 Sample Site Radial, right 10/02/19 01:50 ABG pH 7.41 (7.35-7.45) 10/02/19 01:50 ABG pCO2 29.2 mmHg (35-45) L 10/02/19 01:50 ABG pO2 81.1 mmHg (80.0-100.0) 10/02/19 01:50 ABG HCO3 18.6 mmol/L (22-26) L 10/02/19 01:50 ABG Base Excess -4.7 mmol/L (-2.0-2.0) L 10/02/19 01:50 Prem Test Pos 10/02/19 01:50 Hematocrit 44.4 % (37-47) 10/02/19 01:50 O2 Delivery Device Room air 10/02/19 01:50 Compensation Administrator ID [email or web address] 10/02/19 01:50 Sodium 149 mmol/L (136-145) H 10/03/19 05:10 Potassium 3.1 mmol/L (3.5-5.1) L 10/03/19 05:10 Chloride 112 mmol/L (98-107) H 10/03/19 05:10 Carbon Dioxide 28 mmol/L (22-29) 10/03/19 05:10 Anion Gap 12.1 (5-19) 10/03/19 05:10 BUN 12 mg/dL (6-20) 10/03/19 05:10 Creatinine 0.6 mg/dL (0.5-0.9) 10/03/19 05:10 GFR Calculation 106.3 mL/min (90-130) 10/03/19 05:10 Glucose 128 mg/dL (65-115) H 10/03/19 05:10 POC Glucose 126 mg/dL (70-110) 10/03/19 07:31 Calculated Osmolality 306 mOsm/kg (285-295) H 10/03/19 05:10 Lactate 1.7 mmol/L (0.5-2.2) 10/02/19 02:18 Calcium 8.4 mg/dL (8.5-10.5) L 10/03/19 05:10 Total Bilirubin 0.4 mg/dL (0.15-1.2) 10/03/19 05:10 AST 33 U/L (0-32) H 10/03/19 05:10 ALT 20 U/L (0-33) 10/03/19 05:10 Alkaline Phosphatase 134 IU/L (35-105) H 10/03/19 05:10 Troponin I 6 Hour 39.14 ng/L (0-10) H 10/02/19 09:47 Troponin I Hi Sens Del 7.14 ng/L (0-12) 10/02/19 09:47 Troponin T Gen 5 ng/L 32 ng/L (0-10) H 10/02/19 19:23 Troponin T Baseline 30 ng/L (0-10) H 10/02/19 15:58 Troponin T 120 Minute 37.01 ng/L (0-10) H 10/02/19 07:00 Delta Troponin T 5.01 ABS# (0-10) 10/02/19 07:00 C-Reactive Protein 28.0 mg/L (0.0-4.9) H 10/02/19 09:47 Total Protein 6.3 g/dL (6.6-8.7) L 10/03/19 05:10 Albumin 3.5 g/dL (3.5-5.2) 10/03/19 05:10 Globulin 2.8 g/dL (1.3-4.6) 10/03/19 05:10 Lipase 81 U/L (13-60) H 10/01/19 22:30 Urine Color Yellow (Yellow) 10/02/19 17:05 Urine Appearance Hazy (CLEAR) A 10/02/19 17:05 Urine pH 5 (5-7) 10/02/19 17:05 Ur Specific [place] 1.020 (1.005-1.030) 10/02/19 17:05 Urine Protein Trace (Negative) 10/02/19 17:05 Urine Glucose (UA) 4+ (Normal) H 10/02/19 17:05 Urine Ketones 2+ (Negative) H 10/02/19 17:05 Urine Blood 3+ (Negative) H 10/02/19 17:05 Urine Nitrate Negative (Negative) 10/02/19 17:05 Urine Bilirubin Neg (NEGATIVE) 10/02/19 17:05 Urine Urobilinogen Norm mg/dL (Negative) 10/02/19 17:05 Ur Leukocyte Esterase Negative (Negative) 10/02/19 17:05 Urine RBC 5-10 /hpf (0-2) H 10/02/19 17:05 Urine WBC 0-4 /hpf (0-5) H 10/02/19 17:05 Ur Squamous Epith Cells 5-10 (0-5) H 10/02/19 17:05 Amorphous Sediment Not Reportable 10/02/19 17:05 Urine Bacteria 3+ (NONE) H 10/02/19 17:05 Urine Yeast 1+ H 10/02/19 17:05 CSF Appearance Clear (CLEAR) 10/02/19 14:32 CSF Color Colorless (COLORLESS) 10/02/19 14:32 CSF WBC 3 /uL (0-5) 10/02/19 14:32 CSF RBC 0 10^3/uL (0-0) 10/02/19 14:32 CSF Mononuclear # Auto 0.003 10^3/uL (50-90) L 10/02/19 14:32 CSF Mononuclear WBCs % 100 % (50-90) H 10/02/19 14:32 CSF Polynuclear WBCs # 0.000 10^3/uL (0-10) 10/02/19 14:32 CSF Polynuclear WBCs % 0 % (0-10) 10/02/19 14:32 CSF Diff Comment Yes 10/02/19 14:32 CSF Glucose 168 mg/dL (40-70) H 10/02/19 14:32 CSF Total Protein 34 mg/dL (15-45) 10/02/19 14:32 Serum Ketones Positive (Negative) H 10/01/19 22:30 Hepatitis A IgM Ab Non-reactive (Nonreactive) 10/02/19 09:47 Hep Bs Antigen Non-reactive (Nonreactive) 10/02/19 09:47 Hep B Core IgM Ab Non-reactive (Nonreactive) 10/02/19 09:47 Hepatitis C Antibody Non-reactive (Nonreactive) 10/02/19 09:47 HIV 1&2 Ab & HIV 1 Ag Non-reactive (Non-Reactiv) 10/02/19 09:47 HIV 1&2 Antibody Non-reactive (Non-Reactiv) 10/02/19 09:47 Micro: Microbiology 10/02/19 14:32 Gram Stain - Final Cerebrospinal Fluid 10/02/19 09:50 Blood Culture - Preliminary Blood SPECIMEN COLLECTED 10/02/19 09:47 Blood Culture - Preliminary Blood SPECIMEN COLLECTED CT Head: Radiologist's impression: 1. No evidence of intracranial hemorrhage or mass effect. 2. Mild mucosal thickening in the sphenoid sinuses. 3. No acute intracranial findings. Echo: My impression: Normal left ventricular size and systolic function, EF 62 %. No regional wall motion abnormalities. Grade I/IV diastolic dysfunction (abnormal relaxation filling pattern), normal to mildly elevated filling pressures. Mild concentric left ventricular hypertrophy. Mildly increased left atrial size. Trace tricuspid and pulmonic valve regurgitation. There is no pericardial effusion. There are no intracardiac masses. A&P Assessment and plan (1) Abnormal EKG: Considering the multiple risk factors for coronary disease and the abnormal EKG, in order to further evaluate the coronary status, a myocardial perfusion imaging would be appropriate. May consider doing this once her medical condition is more stable. Status: Acute (2) Elevated troponin: Most likely this is related to type II myocardial infarction. Patient may continue on the Plavix and aspirin and other current medications. Status: Acute (3) Type 1 diabetes mellitus with complication: Patient is on insulin. Continue the management as per the primary care. Status: Acute (4) Fever of unknown origin: The etiology is not clear at this time. So far no source could be identified. The work-up is still under progress. So far blood culture and CSF culture are negative. Status: Acute (5) Sinus tachycardia: Could be multifactorial. The heart rate is not getting under control. Since her blood pressure seems to be going up, I may increase the dose of metoprolol to 25 mg p.o. twice daily. May continue on the other current medications as it is. Status: Acute Additional A&P Information Patient may continue on the current measures. Consider myocardial perfusion imaging on Saturday, if she still in the hospital. Based on the patient's clinical progress and the results of the above, further recommendations will be made. Attestations Medical Necessity Statement*: Patient requires continued hospital stay for close monitoring and further management Coding Level of Care Code Acute Clerical Adjuster for manuel Victor Diagnoses Abnormal EKG R94.31 Elevated troponin R79.89 Type 1 diabetes mellitus with complication E10.8 Fever of unknown origin R50.9 Sinus tachycardia R00.0
[2019-10-03] MEDS: nicotine 21 mg Patch 1 PATCH TRANSDERMA (09:41)
[2019-10-03] MEDS: topiramate 100 mg Tablet PO ×2 (09:41→18:20)
[2019-10-03] MEDS: metoprolol tartrate 25 mg Tablet 12.5 MG PO (09:41)
[2019-10-03] MEDS: aspirin 81 mg EC Tablet PO (09:41)
[2019-10-03] MEDS: pantoprazole 40 mg SDV IVP ×2 (09:42→20:55)
--- NOTE | 2019-10-03 10:23 | USCV_ITS ---
Viki Lobo Age: 48 Gender: F : 1970 Exam Date: 10/03/2019 08:49 Ordering Phys: Luis Brasher MD Technologist: Katja Tejeda Exam Location: [facility] [place] Indication: Chest pain, fever of unknown origin BP: 134 / 75 HR: 86 Rhythm: Sinus Technical Quality: Suboptimal MEASUREMENTS (Male / Female) Normal Values 2D ECHO LV Diastolic Diameter PLAX 4.0 cm 4.2 - 5.9 / 3.9 - 5.3 cm LV Systolic Diameter PLAX 2.9 cm LV Chamber Size 3.1 cm IVS Diastolic Thickness 1.3 cm 0.6 - 1.0 / 0.6 - 0.9 cm IVS Systolic Thickness 1.7 cm LVPW Diastolic Thickness 1.0 cm 0.6 - 1.0 / 0.6 - 0.9 cm LVPW Systolic Thickness 1.3 cm RV Chamber Size 1.4 cm LVOT Diameter 2.0 cm LV Ejection Fraction 2D Teich 52.9 % LV Ejection Fraction MOD 2C 65.8 % LV Ejection Fraction 2C AL 64.9 % LA Diameter 3.5 cm LA Width 2.2 cm LA Height 4.8 cm RA Width 1.9 cm RA Height 4.7 cm Aorta at Sinotubular Diameter 2.7 cm M-MODE LV Diastolic Diameter MM 4.0 cm 4.2 - 5.9 / 3.9 - 5.3 cm LV Systolic Diameter MM 2.2 cm LV Ejection Fraction MM Teich 77.0 % IVS Diastolic Thickness MM 1.4 cm 0.6 - 1.0 / 0.6 - 0.9 cm IVS Systolic Thickness MM 2.0 cm LVPW Diastolic Thickness MM 1.1 cm 0.6 - 1.0 / 0.6 - 0.9 cm LVPW Systolic Thickness MM 1.5 cm RV Diastolic Diameter MM 1.5 cm Aortic Annulus Diameter 2.7 cm LA Ao Ratio MM 1.3 MV E Point Septal Separation 0.3 cm DOPPLER AV Peak Velocity 131.0 cm/s LVOT Peak Velocity 122.0 cm/s AV Area Cont Eq vti 2.7 cm squared AV Area Cont Eq pk 3.0 cm squared MV Area PHT 3.9 cm squared Mitral E to A Ratio 0.7 MV E' Velocity 10.0 cm/s Mitral E to MV E' Ratio 7.0 Mitral E to LV E' Lateral Ratio 7.9 Mitral E to LV E' Septal Ratio 6.3 TV Peak E Velocity 44.0 cm/s Right Atrial Pressure 3.0 mmHg PV Peak Velocity 77.0 cm/s RV Acceleration Time 0.1 s RV Ejection Time 0.2 s RV AcT/ET 0.5 FINDINGS Left Ventricle Normal left ventricular size and systolic function, EF 62 %. No regional wall motion abnormalities. Grade I/IV diastolic dysfunction (abnormal relaxation filling pattern), normal to mildly elevated filling pressures. Mild concentric left ventricular hypertrophy Right Ventricle The right ventricle is normal in size and function. Right Atrium The right atrium is normal in size. Left Atrium Mildly increased left atrial size. Mitral Valve Thickened mitral valve. Aortic Valve Structurally normal aortic valve without significant sclerosis or stenosis. There is no aortic regurgitation. Tricuspid Valve Trace tricuspid valve regurgitation. Pulmonic Valve Trace pulmonary valve regurgitation. Pericardium No pericardial effusion. Aorta Normal aortic annulus size. CONCLUSIONS Normal left ventricular size and systolic function, EF 62 %. No regional wall motion abnormalities. Grade I/IV diastolic dysfunction (abnormal relaxation filling pattern), normal to mildly elevated filling pressures. Mild concentric left ventricular hypertrophy. Mildly increased left atrial size. Trace tricuspid and pulmonic valve regurgitation. There is no pericardial effusion. There are no intracardiac masses. Compared to the previous study from 10/10/2018, there may not be a significant change Dr Norma Land MD FACC (Electronically Signed) Final Date: 03 October 2019 10:20 S
[2019-10-03 11:53] LABS: Glucose Point of Care 162 mg/dL (70-110)
[2019-10-03] MEDS: hyDRALAzine 20 mg/mL INJ 1 mL 5 MG IVP (14:06)
--- NOTE | 2019-10-03 14:54 | P.PN_ITS ---
Subjective Subjective: Interval history: She is somewhat somnolent during my visit. She does wake up to loud voice, reports today she is feeling slightly better, although still bothered by pain in her belly. Then promptly falls back asleep. Does not really answer many more questions. Because allow to be examined, and on palpation of right upper quadrant does report still some tenderness. Mid abdomen palpation where previously was reporting pain, without any tenderness. Vitals/I&O/Wt Last Vital Signs Temp 98.7 F 10/03/19 12:00 Pulse 90 10/03/19 12:00 Resp 14 10/03/19 14:05 BP 154/112 10/03/19 12:00 Pulse Ox 97 10/03/19 12:00 10/02/19 10/03/19 10/03/19 22:59 06:59 14:59 Intake Total 1280 / 1580 100 / 1680 600 / 600 Output Total 250 / 250 200 / 450 200 / 200 Balance 1030 / 1330 -100 / 1230 400 / 400 Weight last 48 hrs Weight 72.575 kg Physical Exam Const: COMMON NORMALS: patient oriented x3 OTHER: Appears to be resting quietly, although is somewhat difficult to arouse, and falls back asleep easily. HENMT: COMMON NORMALS: oropharynx normal Neck/C-Spine: COMMON NORMALS: no JVD Resp: COMMON NORMALS: normal respiratory effort and clear to auscultation bilaterally AUSCULTATION: clear to auscultation bilaterally Cardio: COMMON NORMALS: no JVD, regular rhythm, S1 normal heart sound present, S2 normal heart sound present and No murmurs present (Cardio) RHYTHM: regular rhythm HEART SOUNDS: S1 normal heart sound present and S2 normal heart sound present GI: COMMON NORMALS: Normal to inspection, nondistended, normoactive bowel sounds present and Soft to palpation PALPATION: Yes Soft to palpation and Yes Tenderness to palpation present (GI) Extremity: COMMON NORMALS: no joint enlargement and no pedal edema Neuro: COMMON NORMALS: patient oriented x3 and moves all extremities Skin: COMMON NORMALS: no rashes or lesions noted GENERAL SKIN EXAM: no rashes or lesions noted Data : 10/03/19 05:10 10/03/19 05:10 Micro: Microbiology 10/02/19 14:32 Gram Stain - Final Cerebrospinal Fluid CSF Culture - Preliminary 10/02/19 09:50 Blood Culture - Preliminary Blood NEGATIVE TO DATE 10/02/19 09:47 Blood Culture - Preliminary Blood NEGATIVE TO DATE A&P Assessment and plan (1) Fever of unknown origin: She remains afebrile here. Today sleeping quite a bit, somewhat difficult to arouse. Wakes up to loud voice, or shoulder nudge, answers few questions then falls back asleep. Reportedly did wake up to go to the restroom, and was alert and with it. Today she actually reports she is feeling better with nausea having resolved. Difficult to say why it is hard to get her to wake up. It may be that she is finally catching up on some rest. Her tachycardia appears actually somewhat better today, with heart rate down to 90 with some beta-maynor. Blood pressure is elevated today 154/112. Given small dose of hydralazine. Last night around 3 AM received morphine, Ativan and Imitrex. When woke up reported still bothered by pain in her abdomen. Treatment examination some tenderness in right upper quadrant, no mid abdominal pain. WBC count slightly lower. Liver parameters appear to be improving. Pending MRCP. Blood glucose is not low. Requested continuous pulse oximetry. Continue telemetry. Reports malaise and fevers between 99 and 101 for about a month on and off. Reports that discussed previously with her primary care provider, and he treated her for 5 days with doxycycline for possible tickborne illness. Tick panel was not sent out. Multiple complaints today, including mid abdominal pain, although tender on palpation of right upper quadrant. Persistent nausea, intermittent vomiting, no oral intake. Starvation ketosis. Dehydration. Headache. LP obtained, not suspicious of infection. Does have recurrent migraines. Today episode of chest pain. Sharp, left-sided. With EKG changes with some ST depression. Mild troponin elevation. Echocardiogram ordered. Appreciate cardiology assessment. Does not appear to have myopericarditis. Ultrasound of right upper quadrant unremarkable. With right upper quadrant tenderness, gallbladder dilation, HIDA scan was ordered for confirmation to exclude possible cholecystitis. Notified by [employer] molding technician she could not tolerate HIDA scan as he is not able to take anything by mouth. Ordered MRCP. Requested HIV, hepatitis panel which are negative. She was previously checked for rapid flu, COVID-19 on 09/01 which were negative. Requested tick panel. Follow blood cultures. Due to diarrhea requested bacterial panel, O&P, C. difficile. CRP with elevation of 28, ESR with only mild elevation at 21. JUAN. For now we will not change antibiotics, continue Cipro and Flagyl. Due to possible sepsis with high leukocytosis of 18,000, sinus tachycardia, blood cultures obtained, lactic acid checked and normal. Status: Acute (2) Intractable vomiting: This appears to be slightly better today after switch to Protonix. Continue sucralfate. Possible gastritis, at this time also cannot exclude entirely cholecystitis, although seems less likely. Continue supportive hydration. Hold off on initiation of TPN for now given possible ongoing infection. 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 Denies ever having upper endos copy. Has had a colonoscopy. May benefit from EGD given persistent/recurrent dyspepsia. History of smoking. Status: Acute Qualifiers: Nausea presence: with nausea Vomiting type: unspecified Qualified Code(s): R11.2 - Nausea with vomiting, unspecified (3) Hyperglycemia: Likely stress-induced. Continue insulin. Status: Acute (4) Acute dehydration: Continue IV hydration. Status: Acute (5) Abdominal pain: Lipase only mildly elevated likely due to vomiting. She reports midabdominal pain, but pain is actually in right upper quadrant palpation. As above. Status: Acute Qualifiers: Abdominal location: generalized Qualified Code(s): R10.84 - Generalized abdominal pain (6) Type 1 diabetes mellitus with complication: Status: Acute (7) Chest pain: Episode of sharp left-sided chest pain, with noted mild troponin elevation without rise, but with EKG changes with ST depression. Appreciate cardiology evaluation. May benefit from additional risk stratification/assessment for coronary disease once she is able to undergo stress testing. Appreciate cardiac recommendations. Status: Acute (8) Diarrhea: As above Status: Acute (9) Melanotic stools: Check Hemoccult. Start PPI. She says occasionally used to take ibuprofen, but has not taken about a month. Status: Acute Additional A&P Information Multiple sclerosis Attestations Medical Necessity Statement*: Continue admission for assessment management of recurrent fevers, leukocytosis, possible sepsis of unknown source, intractable nausea and vomiting. Coding Level of Care Code Acute Accounting Systems Analyst for [facility] Fwd Exam Comprehensive Diagnoses Fever of unknown origin R50.9 Intractable vomiting R11.2 Nausea presence: with nausea Vomiting type: unspecified Hyperglycemia R73.9 Acute dehydration E86.0 Abdominal pain R10.84 Abdominal location: generalized Type 1 diabetes mellitus with complication E10.8 Chest pain R07.9 Diarrhea R19.7 Melanotic stools K92.1
[2019-10-03 15:11] LABS: Glucose Point of Care 110 mg/dL (70-110)
[2019-10-03] MEDS: sodium chlor 0.9% + KCl 20 mEq 20 MEQ/1,000 ML BAG 75 MEQ IV (17:15)
[2019-10-03 18:01] LABS: Glucose Point of Care 95 mg/dL (70-110)
[2019-10-03] MEDS: metoprolol tartrate 25 mg Tablet PO (18:20)
[2019-10-03 20:40] LABS: Glucose Point of Care 220 mg/dL (70-110)
[2019-10-03] MEDS: insulin glargine 100 units/1 mL 30 UNIT SUBCUT (21:05)
[2019-10-03 22:11] LABS: Glucose Point of Care 208 mg/dL (70-110)
[2019-10-03] MEDS: diphenhydrAMINE 25 mg Capsule PO (22:28)
[2019-10-04] VITALS (7 sets, daily range): BP systolic 130–155; BP diastolic 61–85; PULSE 78–101; RESP 16–22; TEMP 36.5–37; O2SAT 95–96
[2019-10-04 01:29] LABS: Glucose Point of Care 75 mg/dL (70-110)
[2019-10-04 03:57] LABS: Glucose Point of Care 110 mg/dL (70-110)
[2019-10-04] MEDS: SUMAtriptan 25 mg Tablet 100 MG PO (04:24)
[2019-10-04] MEDS: ciprofloxacin 400 MG/200 ML PREMIX 200 MG IV ×2 (05:08→18:00)
[2019-10-04 05:22] LABS: Basophils % 0.3 %; Eosinophils # 0.2 10^3/uL (0.0-0.8); Eosinophils % 1.5 %; Hematocrit 36.6 % (37.0-47.0); Hemoglobin 12.2 g/dL (11.5-15.3); Lymphocytes # 2.3 10^3/uL (0.8-4.8); Mean Corpuscular HGB Conc 33.3 g/dL (30.0-36.0); Mean Corpuscular Hemoglobin 34.2 pg (28.0-34.0); Mean Corpuscular Volume 102.5 fL (81-99); Monocytes % 7.6 %; Neutrophils # 9.4 10^3/uL (1.8-7.7); Neutrophils % 72.1 %; Nucleated Red Blood Cells % 0 %; Platelet Count 311 10^3/cmm (130-400); Red Blood Count 3.57 10^6/uL (4.1-5.3)
[2019-10-04 05:41] LABS: Alanine Aminotransferase 19 U/L (0-33); Albumin Level 3.2 g/dL (3.5-5.2); Alkaline Phosphatase 124 IU/L (35-105); Anion Gap 15.9 (5-19); Aspartate Amino Transferase 26 U/L (0-32); Blood Urea Nitrogen 5 mg/dL (6-20); Carbon Dioxide 21 mmol/L (22-29); Chloride 106 mmol/L (98-107); Globulin 2.8 g/dL (1.3-4.6); Glomerular Filtration Rate 169.7 mL/min (90-130); Glucose 127 mg/dL (65-115); Osmolality Calculated 287 mOsm/kg (285-295); Sodium 140 mmol/L (136-145); Total Bilirubin 0.7 mg/dL (0.15-1.2)
[2019-10-04] MEDS: sucralfate 1 gm Tablet PO (06:23)
[2019-10-04] MEDS: metroNIDAZOLE IV 500 MG/100 ML PREMIX 100 MG IV ×2 (06:23→15:17)
[2019-10-04 06:26] LABS: Glucose Point of Care 169 mg/dL (70-110)
[2019-10-04 06:30] LABS: Potassium 2.9 mmol/L (3.5-5.1)
[2019-10-04] MEDS: potassium chloride premix 40 MEQ/100 ML PREMIX 25 MEQ IV (08:49)
[2019-10-04] MEDS: aspirin 81 mg EC Tablet PO (08:49)
[2019-10-04] MEDS: pantoprazole 40 mg SDV IVP (08:49)
[2019-10-04] MEDS: nicotine 21 mg Patch 1 PATCH TRANSDERMA (08:49)
[2019-10-04] MEDS: metoprolol tartrate 25 mg Tablet PO ×2 (08:50→18:01)
[2019-10-04] MEDS: topiramate 100 mg Tablet PO ×2 (08:50→18:01)
[2019-10-04] MEDS: lidocaine 1% INJ 20 mL 5 ML IV (09:18)
--- NOTE | 2019-10-04 10:03 | P.PN_ITS ---
Subjective Subjective: Interval history: Patient has no chest pain or shortness of breath. She continues to have abdominal pain and diarrhea. No fever or chills. No cough. No arrhythmias on the monitor. No new symptoms. Medications: Reviewed: Yes Medication Review Details: Current Medications Aspirin (Aspirin Ec) 81 mg PO DAILY [facility] Last Admin: 10/04/19 08:49 Dose: 81 mg Documented by: Dextrose (D50w) 25 ml IVP ONCE PRN; Protocol PRN Reason: hypoglycemia protocol Dextrose (D50w) 50 ml IVP PRN PRN; Protocol PRN Reason: hypoglycemia protocol Enoxaparin Sodium (Lovenox) 40 mg SUBCUT Q24H ANGE Last Admin: 10/02/19 05:49 Dose: 40 mg Documented by: Glucagon (Glucagen) 1 mg IM ONCE PRN; Protocol PRN Reason: Adult Acute Hypoglycemia Prot. Dextrose (D5w) 500 mls @ 100 mls/hr IV ONCE PRN; Protocol PRN Reason: Adult Acute Hypoglycemia Prot Potassium Chloride/Sodium Chloride (Sodium Chlor 0.9% + Kcl 20 Meq) 20 meq in 1,000 mls @ 75 mls/hr IV .[id number] ANGE Last Admin: 10/04/19 15:20 Dose: 75 mls/hr Documented by: Ciprofloxacin/Dextrose (Cipro) 400 mg in 200 mls @ 200 mls/hr IV Q12H ANGE; Protocol Last Infusion: 10/04/19 09:00 Dose: Infused Documented by: Metronidazole (Flagyl Iv) 500 mg in 100 mls @ 100 mls/hr IV Q8H ANGE; Protocol Last Admin: 10/04/19 15:17 Dose: 100 mls/hr Documented by: Insulin Aspart (Novolog) 0 unit SUBCUT WM&BEDTIME ANGE; Protocol Last Admin: 10/04/19 12:03 Dose: Not Given Documented by: Insulin Glargine (Lantus) 30 unit SUBCUT BEDTIME ANGE Last Admin: 10/03/19 21:05 Dose: 30 unit Documented by: Loperamide HCl (Imodium Capsule) 2 mg PO QID PRN PRN Reason: DIARRHEA Last Admin: 10/04/19 15:17 Dose: 2 mg Documented by: Metoclopramide HCl (Reglan) 5 mg IVP Q4H PRN PRN Reason: vomit Last Admin: 10/04/19 15:17 Dose: 5 mg Documented by: Metoprolol Tartrate (Lopressor) 25 mg PO BID [facility] Last Admin: 10/04/19 08:50 Dose: 25 mg Documented by: Morphine Sulfate (Morphine) 2 mg IVP Q4H PRN PRN Reason: SEVERE PAIN Last Admin: 10/04/19 15:18 Dose: 2 mg Documented by: Nicotine (Nicoderm 21 Mg Patch) 1 patch TRANSDERMA DAILY [facility] Last Admin: 10/04/19 08:49 Dose: 1 patch Documented by: Nitroglycerin (Nitrostat) 0.4 mg SUBLINGUAL Q5M PRN PRN Reason: CHEST PAIN Non-Formulary Medication (Famotidine) 20 mg PO DAILY [facility] Ondansetron HCl (Zofran) 4 mg IVP Q4H PRN PRN Reason: NAUSEA AND VOMITING Last Admin: 10/03/19 02:29 Dose: 4 mg Documented by: Pantoprazole Sodium (Protonix) 40 mg IVP Q12H [facility] Last Admin: 10/04/19 08:49 Dose: 40 mg Documented by: Sucralfate (Carafate) 1 gm PO AC&BEDTIME [facility] Last Admin: 10/04/19 12:03 Dose: Not Given Documented by: Sumatriptan Succinate (Imitrex) 100 mg PO DAILY PRN PRN Reason: Migraine Headache Last Admin: 10/04/19 04:24 Dose: 100 mg Documented by: Tizanidine HCl (Zanaflex) 4 mg PO Q6H PRN PRN Reason: Muscle Spasm Topiramate (Topamax) 100 mg PO BID [facility] Last Admin: 10/04/19 08:50 Dose: 100 mg Documented by: Vitals/I&O/Wt Last Vital Signs Temp 98.3 F 10/04/19 08:03 Pulse 100 10/04/19 08:03 Resp 20 H 10/04/19 08:03 BP 142/80 10/04/19 08:03 Pulse Ox 95 10/04/19 08:03 10/03/19 10/04/19 10/04/19 22:59 06:59 14:59 Intake Total 600 / 2200 500 / 2700 300 / 300 Output Total 323 / 523 720 / 1243 Balance 277 / 1677 -220 / 1457 300 / 300 Physical Exam Narrative: EXAM NARRATIVE: GENERAL: The patient appears to be somewhat more awake today . Denies any chest pain or shortness of breath HEENT: No significant pallor, icterus or lymphadenopathy. NECK: Trachea appears to be central. No masses noted. No JVD or thyromegaly appreciated. No carotid bruit. RESPIRATORY: Chest is symmetrical. No intercostals muscle retraction or any accessory muscle activation. There is no chest wall tenderness. Breath sounds are heard bilaterally. No rales or rhonchi heard. No evidence of any consolidation. BREASTS: Deferred. HEART: T the heart sounds are normal. No S3 or S4. No significant murmurs. ABDOMEN: No vessel pulsations or distention. Some vague tenderness in the periumbilical region. no organomegaly appreciated. No abdominal bruit. Bowel sounds are normally heard. : Deferred. RECTAL: Deferred. LYMPHATIC: No lymphadenopathy noted in the neck . EXTREMITIES: Significant edema or cyanosis. MUSCULOSKELETAL: No acute joint deformities or swelling SKIN: Extensive skin abrasions in the upper and lower extremities. NEUROPSYCHIATRIC: Appears very drowsy. No focal motor deficits. Data : 10/04/19 04:32 10/04/19 04:32 Micro: Microbiology 10/02/19 17:05 Urine Culture - Preliminary Urine,Clean Catch 10/03/19 13:25 Enteric Pathogens (PCR) - Final Stool Routine Collection C.difficile Toxin B Gene (PCR) - Final Occult Blood (FIT) - Final 10/02/19 14:32 Gram Stain - Final Cerebrospinal Fluid CSF Culture - Preliminary 10/02/19 09:50 Blood Culture - Preliminary Blood NEGATIVE TO DATE 10/02/19 09:47 Blood Culture - Preliminary Blood NEGATIVE TO DATE Echo: My impression: Normal left ventricular size and systolic function, EF 62 %. No regional wall motion abnormalities. Grade I/IV diastolic dysfunction (abnormal relaxation filling pattern), normal to mildly elevated filling pressures. Mild concentric left ventricular hypertrophy. Mildly increased left atrial size. Trace tricuspid and pulmonic valve regurgitation. There is no pericardial effusion. There are no intracardiac masses. A&P Assessment and plan (1) Hypokalemia: Possibly from the diarrhea. She is getting potassium supplement parenterally. Status: Acute (2) Abnormal EKG: Considering the multiple risk factors for coronary disease and the abnormal EKG, in order to further evaluate the coronary status, a myocardial perfusion imaging would be appropriate. May go ahead and schedule her for a myocardial perfusion imaging tomorrow. Status: Acute (3) Elevated troponin: Most likely this is related to type II myocardial infarction. Patient may continue on the Plavix and aspirin and other current medications. Status: Acute (4) Type 1 diabetes mellitus with complication: Patient is on insulin. Continue the management as per the primary care. Status: Acute Additional A&P Information Patient may continue on the current measures. After reviewing the myocardial perfusion imaging, further recommendations will be made. Attestations Medical Necessity Statement*: Patient requires continued hospital stay for close monitoring and further management Coding Level of Care Code Acute Requirements Analyst for [facility] Fwd Diagnoses Hypokalemia E87.6 Abnormal EKG R94.31 Elevated troponin R79.89 Type 1 diabetes mellitus with complication E10.8
--- NOTE | 2019-10-04 11:06 | MRR_ITS ---
PROCEDURE INFORMATION: Exam: MR Abdomen Without Contrast, MRCP. Exam date and time: 10/04/2019 11:06 AM Age: 48 years old Clinical indication: Abdominal pain; Colic; Prior surgery; Additional info: Cannot tolerate hida. Possible cholecystitis. Fuo. TECHNIQUE: Imaging protocol: MR of the abdomen without contrast. COMPARISON: CT abdomen pelvis w con* [id number] 10/01/2019 3:53 AM SR - US abdomen limited [id number] 10/01/2019 11:50:10 PM FINDINGS: Liver: No mass. Gallbladder and bile ducts: Unremarkable. No filling defects. No ductal dilation. Pancreas: Unremarkable. No ductal dilation. Intraperitoneal space: No fluid collection. MR/MR MRCP [id number] IMPRESSION: Unremarkable abdomen.
[2019-10-04 12:10] LABS: Glucose Point of Care 140 mg/dL (70-110)
--- NOTE | 2019-10-04 14:24 | PM.PN ---
Subjective Subjective: Interval history: Today she is awake, alert. Sitting on the commode. Says woke up with diarrhea. Nausea and vomiting appear to be better, but says anything she eats runs through her. No blood. Still some right upper quadrant abdominal discomfort. Vitals/I&O/Wt Last Vital Signs Temp 97.9 F 10/04/19 11:52 Pulse 78 10/04/19 11:52 Resp 18 10/04/19 11:52 BP 133/69 10/04/19 11:52 Pulse Ox 95 10/04/19 11:52 10/03/19 10/04/19 10/04/19 22:59 06:59 14:59 Intake Total 600 / 2200 500 / 2700 1140 / 1140 Output Total 323 / 523 720 / 1243 Balance 277 / 1677 -220 / 1457 1140 / 1140 Physical Exam Const: COMMON NORMALS: patient oriented x3 OTHER: On the commode. HENMT: COMMON NORMALS: oropharynx normal Neck/C-Spine: COMMON NORMALS: no JVD Resp: COMMON NORMALS: normal respiratory effort and clear to auscultation bilaterally AUSCULTATION: clear to auscultation bilaterally Cardio: COMMON NORMALS: no JVD, regular rhythm, S1 normal heart sound present, S2 normal heart sound present and No murmurs present (Cardio) RHYTHM: regular rhythm HEART SOUNDS: S1 normal heart sound present and S2 normal heart sound present GI: COMMON NORMALS: Normal to inspection, nondistended, normoactive bowel sounds present and Soft to palpation PALPATION: Yes Soft to palpation and Yes Tenderness to palpation present (GI) Extremity: COMMON NORMALS: no joint enlargement and no pedal edema Neuro: COMMON NORMALS: patient oriented x3 and moves all extremities Skin: COMMON NORMALS: no rashes or lesions noted GENERAL SKIN EXAM: no rashes or lesions noted Data : 10/04/19 04:32 10/04/19 04:32 Micro: Microbiology 10/02/19 14:32 Gram Stain - Final Cerebrospinal Fluid CSF Culture - Preliminary 10/02/19 17:05 Urine Culture - Preliminary Urine,Clean Catch 10/03/19 13:25 Enteric Pathogens (PCR) - Final Stool Routine Collection C.difficile Toxin B Gene (PCR) - Final Occult Blood (FIT) - Final 10/02/19 09:50 Blood Culture - Preliminary Blood NEGATIVE TO DATE 10/02/19 09:47 Blood Culture - Preliminary Blood NEGATIVE TO DATE A&P Assessment and plan (1) Fever of unknown origin: No fever today. Undergoing MRCP. Nausea and vomiting slightly better. Bothered by diarrhea but which got woken up today. Slight right upper quadrant discomfort persists. Mild sinus tachycardia persists, although better with beta-blockers. If no suggestion of cholecystitis on MRCP, discussed with her may need transfer to higher level facility for additional evaluation by infectious disease. Possibly gastroenterology. With diarrhea, abdominal comfort, elevation of CRP, ESR, on history when asked about IBD in family, states that sister has Crohn's disease. WBC count decreasing. Liver parameters appear to be improving. Reports malaise and fevers between 99 and 101 for about a month on and off. Reports that discussed previously with her primary care provider, and he treated her for 5 days with doxycycline for possible tickborne illness. Multiple complaints on admit, including mid abdominal pain, although tender on palpation of right upper quadrant. Persistent nausea, intermittent vomiting, no oral intake. Starvation ketosis. Dehydration. Headache. LP obtained, not suspicious of infection. Does have recurrent migraines. Episode of chest pain. Possible CAD. May benefit from stress test. With EKG changes with some ST depression. Mild troponin elevation. Echocardiogram ordered. Appreciate cardiology assessment. Does not appear to have myopericarditis. Ultrasound of right upper quadrant unremarkable. With right upper quadrant tenderness, gallbladder dilation, HIDA scan was ordered for confirmation to exclude possible cholecystitis. Notified by [place] denture technician she could not tolerate HIDA scan as he is not able to take anything by mouth. Pending MRCP. Negative HIV, hepatitis panel. She was previously checked for rapid flu, COVID-19 on 09/01 which were negative. Requested tick panel. Follow blood cultures. Negative so far. Due to diarrhea requested bacterial panel, O&P, C. difficile. CRP with elevation of 28, ESR with only mild elevation at 21. JUAN. For now we will not change antibiotics, continue Cipro and Flagyl. Due to possible sepsis with high leukocytosis of 18,000, sinus tachycardia, blood cultures obtained, lactic acid checked and normal. Status: Acute (2) Intractable vomiting: This appears to be slightly better after switch to Protonix. Continue sucralfate. Possible gastritis, at this time also cannot exclude entirely cholecystitis, although seems less likely. Continue supportive hydration. Hold off on initiation of TPN for now given possible ongoing infection. 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 Denies ever having upper endoscopy. Has had a colonoscopy. May benefit from EGD given persistent/recurrent dyspepsia. History of smoking. Status: Acute Qualifiers: Nausea presence: with nausea Vomiting type: unspecified Qualified Code(s): R11.2 - Nausea with vomiting, unspecified (3) Hyperglycemia: Likely stress-induced. Continue insulin. Status: Acute (4) Acute dehydration: Continue IV hydration. Status: Acute (5) Abdominal pain: Lipase only mildly elevated likely due to vomiting. She reports midabdominal pain, but pain is actually in right upper quadrant palpation. As above. Status: Acute Qualifiers: Abdominal location: generalized Qualified Code(s): R10.84 - Generalized abdominal pain (6) Type 1 diabetes mellitus with complication: Status: Acute (7) Chest pain: Episode of sharp left-sided chest pain, with noted mild troponin elevation without rise, but with EKG changes with ST depression. Appreciate cardiology evaluation. May benefit from additional risk stratification/assessment for coronary disease once she is able to undergo stress testing. Appreciate cardiac recommendations. Status: Acute (8) Diarrhea: As above Status: Acute (9) Melanotic stools: Check Hemoccult. PPI. She says occasionally used to take ibuprofen, but has not taken about a month. Melena resolved. Persistent diarrhea. Status: Acute Additional A&P Information Diarrhea: persists. As above. Multiple sclerosis Attestations Medical Necessity Statement*: Continue admission for assessment and management of fever of unknown origin, possible sepsis, inability to adequately hydrate by oral intake. Coding Level of Care Code Acute Associate Professor Of Chemistry for [facility] Fwd Exam Comprehensive Diagnoses Fever of unknown origin R50.9 Intractable vomiting R11.2 Nausea presence: with nausea Vomiting type: unspecified Hyperglycemia R73.9 Acute dehydration E86.0 Abdominal pain R10.84 Abdominal location: generalized Type 1 diabetes mellitus with complication E10.8 Chest pain R07.9 Diarrhea R19.7 Melanotic stools K92.1
[2019-10-04] MEDS: metoclopramide 5 mg/mL SDV 2 mL IVP (15:17)
[2019-10-04] MEDS: loperamide 2 mg Capsule PO (15:17)
[2019-10-04] MEDS: morphine 4 mg/mL SDV 1 mL 2 MG IVP (15:18)
[2019-10-04] MEDS: sodium chlor 0.9% + KCl 20 mEq 20 MEQ/1,000 ML BAG 75 MEQ IV (15:20)
[2019-10-04 16:35] LABS: Glucose Point of Care 153 mg/dL (70-110)
--- NOTE | 2019-10-04 19:28 | PM.TDS ---
Transfer Summary Providers Date of Admission: 10/02/19 21:30 Date of Discharge: 10/04/19 Attending Provider at Admission: Alexx Cintron MD Attending Provider at Transfer: Luis Brasher Primary Care Provider: Nathaniel Zelaya MD Anticipated Date of Transfer: Anticipated date of transfer: 10/04/19 Receiving Facility & Provider: Receiving Provider: [] Receiving facility: [] Diagnoses at Discharge Discharge Diagnosis (1) Hypokalemia: Status: Acute (2) Abnormal EKG: Status: Acute (3) Elevated troponin: Status: Acute (4) Type 1 diabetes mellitus with complication: Status: Acute (5) Fever of unknown origin: Status: Acute (6) Intractable vomiting: Status: Acute Qualifiers: Nausea presence: with nausea Vomiting type: unspecified Qualified Code(s): R11.2 - Nausea with vomiting, unspecified (7) Diarrhea: Status: Acute (8) Melanotic stools: Status: Acute (9) Sinus tachycardia: Status: Acute (10) Headache: Status: Acute (11) Abdominal pain: Status: Acute Qualifiers: Abdominal location: generalized Qualified Code(s): R10.84 - Generalized abdominal pain (12) Chest pain: Status: Acute Reason for Visit Reason for Visit: n/v Hospital Course Hospital Course: Pleasant 48-year-old lady with DM 1, MS, gastroparesis, TIA, CVA, chronic migraine for which she follows with neurology, diabetic neuropathy, current smoker was admitted for assessment of management due to complaint of on and off fevers over the past month, as well as intractable nausea and vomiting. She received a course of doxycycline by her primary care provider 2 weeks earlier as it was thought perhaps fevers were due to a tickborne illness. Unfortunately without improvement. 2 days prior to admission also accompanied by nausea and vomiting, unable to tolerate any oral intake. She had no symptoms of COVID-19. Was tested on 09/01 and was negative. Rapid flu was negative. On presentation CT abdomen pelvis noted with gallbladder dilation, and so was started on Cipro and Flagyl, however, abdominal ultrasound was unremarkable. She was having right upper quadrant pain, and so initially HIDA scan was planned, however, could not tolerate any oral intake, and so MRCP was obtained instead, subsequently unremarkable. On presentation also with headache, and has chronic neck pain for which received Botox injection previously from neurology. With recurrent fever, and leukocytosis on presentation of 18, underwent assessment by lumbar puncture, without finding on CSF suggestive of infection. Blood cultures and CSF cultures, as well as urine culture so far negative. She received treatment with IV fluids for dehydration, on presentation also with sinus tachycardia which did show some gradual improvement. On 10/01 also with episode of sharp left-sided chest pain, with ST depressions noted on EKG, mild troponin elevation. Was assessed by cardiology, and symptoms not thought to be secondary to myopericarditis. Would benefit from additional stress test evaluation once she is able to undergo this. Has been maintained on IV hydration, PPI, sucralfate, antinausea medicines. Without ability to take any significant oral intake. With persistent diarrhea which was assessed and negative for C. difficile, enteric bacterial pathogens or Hemoccult (initially she reported some melanotic appearing stools, but these were not observed). Possibly episodes of melena in the past, given smoking history may benefit from EGD at some point. Ova and parasite study from the stool were requested but so far are pending due to some issue with the sample. Moderate alkaline phosphatase elevation noted on presentation up to 216, has been gradually decreasing, down to 124. Transient very mild elevation of AST up to 33. Hepatitis panel was obtained and was negative. HIV negative. Tick panel was sent out. ESR and CRP elevated, with mild ovation of ESR to 21, and moderate elevation of CRP to 28. On additional questioning elicits history of Crohn's disease in her sister. She herself appears has had a colonoscopy back in May without abnormality. Given persistent abdominal pain, diarrhea, dyspepsia, reports of on and off fever over a month, persistent leukocytosis, sinus tachycardia, concern is for either additional undiagnosed infection, or possibly inflammatory/autoimmune condition, possibly IBD. Given she still cannot reliably tolerate any significant amount of oral intake and persistent symptoms transfer was arranged to [facility] for additional evaluation by possibly infectious disease design sales consultant and possibly gastroenterology design sales consultant. Case was discussed with hot mill observer there, although referred to hospitalist for admission and was kindly accepted by Dr. Quiroz. Patient's condition and plan discussed with her, and she is agreeable to proceed with transfer. Please feel free to call with any questions. Physical Exam Const: COMMON NORMALS: patient oriented x3 OTHER: On the commode. HENMT: COMMON NORMALS: oropharynx normal Neck/C-Spine: COMMON NORMALS: no JVD Resp: COMMON NORMALS: normal respiratory effort and clear to auscultation bilaterally AUSCULTATION: clear to auscultation bilaterally Cardio: COMMON NORMALS: no JVD, regular rhythm, S1 normal heart sound present, S2 normal heart sound present and No murmurs present (Cardio) RHYTHM: regular rhythm HEART SOUNDS: S1 normal heart sound present and S2 normal heart sound present GI: COMMON NORMALS: Normal to inspection, nondistended, normoactive bowel sounds present and Soft to palpation PALPATION: Yes Soft to palpation and Yes Tenderness to palpation present (GI) Extremity: COMMON NORMALS: no joint enlargement and no pedal edema Neuro: COMMON NORMALS: patient oriented x3 and moves all extremities Skin: COMMON NORMALS: no rashes or lesions noted GENERAL SKIN EXAM: no rashes or lesions noted TS Data Data Completed and Pending: Completed Studies During Hospitalization Category Date Time Status CT head wo con* 7 0450 Urgent Cat Scan 10/02/19 09:47 Completed FL guided lumbarp unc dx* [id number] Rout ine Exams 10/02/19 09:44 Completed XR chest 1V lacho ble [id number] Stat Exams 10/02/19 03:36 Completed MR MRCP [id number] Rou robert MRI 10/04/19 11:06 Completed CV echo complete* [id number] Routine Ultrasound 10/03/19 10:23 Completed US abdomen limite d [id number] Urgent Ultrasound 10/01/19 23:15 Completed Pending at discharge Category Date Time Status JUAN Screen w/ Ref audrey Routine Lab 10/02/19 22:23 Received Blood Culture Sta t Lab 10/02/19 09:50 Results CSF Culture & Gra m Stain Routine Lab 10/02/19 14:32 Results Clostridioides Di fficile PCR Routin e Lab 10/02/19 21:10 Results Complete Blood Co unt w/Auto AM LABS Lab 10/05/19 04:00 Ordered Comprehensive Met abolic Panel AM LA BS Lab 10/05/19 04:00 Ordered Enteric Bacterial Panel by PCR Rout ine Lab 10/02/19 21:10 Results Enteric Parasite Panel by PCR Routi ne Lab 10/02/19 21:10 Results Immunochemical Fe ursula OCB Routine Lab 10/02/19 21:10 Results Lymes Disease Ant ibodies CSF Routin e Lab 10/02/19 14:32 Received Miscellaneous Lori t Routine Lab 10/02/19 09:45 Received [place] Enceph. Virus IFA CSF Rout ine Lab 10/02/19 14:32 Received Tick Panel Routin e Lab 10/02/19 15:58 Received Urine Culture Sta t Lab 10/02/19 17:05 Results West Nile Virus A B Panel,CSF Routin e Lab 10/02/19 14:32 Received MR MRCP [id number] Enmanuel jones MRI 10/02/19 21:09 Stop Req Labs from last 24 hours 10/04/19 10/04/19 10/04/19 16:19 11:53 06:13 WBC RBC Hgb Hct MCV MCH MCHC RDW Plt Count MPV Neut % (Auto) Lymph % (Auto) [place] % (Auto) Eos % (Auto) Baso % (Auto) Neut # (Auto) Lymph # (Auto) [place] # (Auto) Eos # (Auto) Baso # (Auto) Nucleated RBC % (a uto) Nucleated RBCs # Sodium Potassium Chloride Carbon Dioxide Anion Gap BUN Creatinine GFR Calculation Glucose POC Glucose 153 140 169 Calculated Osmolal ity Calcium Total Bilirubin AST ALT Alkaline Phosphata se Total Protein Albumin Globulin 10/04/19 10/04/19 10/04/19 04:32 04:32 03:52 WBC 13.0 H RBC 3.57 L Hgb 12.2 Hct 36.6 L MCV 102.5 H MCH 34.2 H MCHC 33.3 RDW 12.0 L Plt Count 311 MPV 11.0 H Neut % (Auto) 72.1 Lymph % (Auto) 18.0 [place] % (Auto) 7.6 Eos % (Auto) 1.5 Baso % (Auto) 0.3 Neut # (Auto) 9.4 H Lymph # (Auto) 2.3 [place] # (Auto) 1.0 H Eos # (Auto) 0.2 Baso # (Auto) 0.0 Nucleated RBC % (a uto) 0 Nucleated RBCs # 0.0 Sodium 140 Potassium 2.9 L Chloride 106 Carbon Dioxide 21 L Anion Gap 15.9 BUN 5 L Creatinine 0.4 L GFR Calculation 169.7 H Glucose 127 H POC Glucose 110 Calculated Osmolal ity 287 Calcium 8.0 L Total Bilirubin 0.7 AST 26 ALT 19 Alkaline Phosphata se 124 H Total Protein 6.0 L Albumin 3.2 L Globulin 2.8 10/04/19 10/03/19 10/03/19 01:26 22:00 20:31 WBC RBC Hgb Hct MCV MCH MCHC RDW Plt Count MPV Neut % (Auto) Lymph % (Auto) [place] % (Auto) Eos % (Auto) Baso % (Auto) Neut # (Auto) Lymph # (Auto) [place] # (Auto) Eos # (Auto) Baso # (Auto) Nucleated RBC % (a uto) Nucleated RBCs # Sodium Potassium Chloride Carbon Dioxide Anion Gap BUN Creatinine GFR Calculation Glucose POC Glucose 75 208 220 Calculated Osmolal ity Calcium Total Bilirubin AST ALT Alkaline Phosphata se Total Protein Albumin Globulin Vitals: Last Vital Signs Temp 97.7 F 10/04/19 15:41 Pulse 86 10/04/19 15:41 Resp 20 H 10/04/19 15:41 BP 155/85 10/04/19 15:41 Pulse Ox 95 10/04/19 15:41 TS Medications Medications Home Medications aspirin 81 mg tablet,delayed release 81 mg PO DAILY tab 04/22/19 [History Confirmed 09/22/19] diphenhydramine HCl 25 mg capsule 25 mg PO BID PRN cap 04/22/19 [History Confirmed 09/22/19] ipratropium bromide 42 mcg (0.06 %) nasal spray 2 spray INTRANASAL TID 04/22/19 [History Confirmed 09/22/19] metoprolol tartrate 25 mg tablet 12.5 mg PO BID 90 Days #90 tab 04/22/19 [Rx Confirmed 09/22/19] nitroglycerin 0.4 mg sublingual tablet 0.4 mg SUBLINGUAL Q5M PRN 04/22/19 [History Confirmed 09/22/19] sucralfate 1 gram tablet 1 gm PO .COMPLEX 04/22/19 [History Confirmed 09/22/19] sumatriptan succinate 100 mg tablet 100 mg PO DAILY PRN tab 04/22/19 [History Confirmed 09/22/19] topiramate 100 mg tablet 100 mg PO BID 90 Days #180 tab 04/22/19 [Rx Confirmed 09/22/19] insulin aspart U-100 100 unit/mL (3 mL) subcutaneous pen 5 unit SUBCUT TID #15 ml 04/27/19 [Rx Confirmed 09/22/19] tizanidine 4 mg PO Q6H PRN 05/07/19 [History Confirmed 09/22/19] pantoprazole 40 mg PO DAILY 05/08/19 [History Confirmed 09/22/19] famotidine 20 mg tablet 20 mg PO DAILY #30 tab 06/18/19 [Rx Confirmed 09/22/19] metoclopramide HCl 10 mg tablet 10 mg PO TID #90 tab 06/18/19 [Rx Confirmed 09/22/19] pregabalin 75 mg capsule 75 mg PO TID #90 cap MDD 3 07/13/19 [Rx Confirmed 09/22/19] furosemide 20 mg tablet 10 mg PO QAM #10 tab 07/30/19 [Rx Confirmed 09/22/19] desvenlafaxine 100 mg tablet,extended release 24 hour 100 mg PO DAILY #90 tab 09/22/19 [Rx Confirmed 09/22/19] doxycycline hyclate 100 mg capsule 100 mg PO BID #10 cap 09/22/19 [Rx Confirmed 09/22/19] insulin glargine 100 unit/mL (3 mL) subcutaneous pen 30 unit SUBCUT BID #15 ml 09/22/19 [Rx Confirmed 09/22/19] morphine 30 mg tablet,extended release 30 mg PO Q12H 30 Days #60 tab 09/22/19 [Rx Confirmed 09/22/19] metoclopramide HCl [Reglan] 10 mg PO Q6H PRN #20 tab 10/01/19 [Rx] ondansetron 4 mg PO Q6H PRN #14 tab 10/01/19 [Rx] Active Medications Aspirin (Aspirin Ec) 81 mg PO DAILY [facility] Last Admin: 10/04/19 08:49 Dose: 81 mg Documented by: Dextrose (D50w) 25 ml IVP ONCE PRN; Protocol PRN Reason: hypoglycemia protocol Dextrose (D50w) 50 ml IVP PRN PRN; Protocol PRN Reason: hypoglycemia protocol Enoxaparin Sodium (Lovenox) 40 mg SUBCUT Q24H [facility] Last Admin: 10/02/19 05:49 Dose: 40 mg Documented by: Glucagon (Glucagen) 1 mg IM ONCE PRN; Protocol PRN Reason: Adult Acute Hypoglycemia Prot. Dextrose (D5w) 500 mls @ 100 mls/hr IV ONCE PRN; Protocol PRN Reason: Adult Acute Hypoglycemia Prot Potassium Chloride/Sodium Chloride (Sodium Chlor 0.9% + Kcl 20 Meq) 20 meq in 1,000 mls @ 75 mls/hr IV .[id number] [facility] Last Admin: 10/04/19 15:20 Dose: 75 mls/hr Documented by: Ciprofloxacin/Dextrose (Cipro) 400 mg in 200 mls @ 200 mls/hr IV Q12H [facility]; Protocol Last Admin: 10/04/19 18:00 Dose: 200 mls/hr Documented by: Metronidazole (Flagyl Iv) 500 mg in 100 mls @ 100 mls/hr IV Q8H [facility]; Protocol Last Admin: 10/04/19 15:17 Dose: 100 mls/hr Documented by: Insulin Aspart (Novolog) 0 unit SUBCUT WM&BEDTIME [facility]; Protocol Last Admin: 10/04/19 18:01 Dose: 6 unit Documented by: Insulin Glargine (Lantus) 30 unit SUBCUT BEDTIME [facility] Last Admin: 10/03/19 21:05 Dose: 30 unit Documented by: Loperamide HCl (Imodium Capsule) 2 mg PO QID PRN PRN Reason: DIARRHEA Last Admin: 10/04/19 15:17 Dose: 2 mg Documented by: Metoclopramide HCl (Reglan) 5 mg IVP Q4H PRN PRN Reason: vomit Last Admin: 10/04/19 15:17 Dose: 5 mg Documented by: Metoprolol Tartrate (Lopressor) 25 mg PO BID [facility] Last Admin: 10/04/19 18:01 Dose: 25 mg Documented by: Morphine Sulfate (Morphine) 2 mg IVP Q4H PRN PRN Reason: SEVERE PAIN Last Admin: 10/04/19 15:18 Dose: 2 mg Documented by: Nicotine (Nicoderm 21 Mg Patch) 1 patch TRANSDERMA DAILY [facility] Last Admin: 10/04/19 08:49 Dose: 1 patch Documented by: Nitroglycerin (Nitrostat) 0.4 mg SUBLINGUAL Q5M PRN PRN Reason: CHEST PAIN Non-Formulary Medication (Famotidine) 20 mg PO DAILY [facility] Ondansetron HCl (Zofran) 4 mg IVP Q4H PRN PRN Reason: NAUSEA AND VOMITING Last Admin: 10/03/19 02:29 Dose: 4 mg Documented by: Pantoprazole Sodium (Protonix) 40 mg IVP Q12H [facility] Last Admin: 10/04/19 08:49 Dose: 40 mg Documented by: Sucralfate (Carafate) 1 gm PO AC&BEDTIME [facility] Last Admin: 10/04/19 18:00 Dose: Not Given Documented by: Sumatriptan Succinate (Imitrex) 100 mg PO DAILY PRN PRN Reason: Migraine Headache Last Admin: 10/04/19 04:24 Dose: 100 mg Documented by: Tizanidine HCl (Zanaflex) 4 mg PO Q6H PRN PRN Reason: Muscle Spasm Topiramate (Topamax) 100 mg PO BID [facility] Last Admin: 10/04/19 18:01 Dose: 100 mg Documented by: Discharge Plan Discharge Patient Disposition: Xfer Short-Term Hosp Condition: Stable Prescriptions: No Action pregabalin [Lyrica] 75 mg capsule 75 mg PO TID MDD 3 Qty: 90 RF: 2 desvenlafaxine 100 mg tablet extended release 24 hr 100 mg PO DAILY Qty: 90 RF: 3 aspirin [Adult Aspirin Regimen] 81 mg tablet,delayed release (DR/EC) 81 mg PO DAILY RF: 0 sumatriptan succinate 100 mg tablet 100 mg PO DAILY PRN (Reason: Migraine Headache) RF: 0 ipratropium bromide 42 mcg (0.06 %) spray,non-aerosol 2 spray INTRANASAL TID RF: 0 diphenhydramine HCl [Allergy (diphenhydramine)] 25 mg capsule 25 mg PO BID PRN (Reason: Allergic Symptoms) RF: 0 nitroglycerin 0.4 mg tablet, sublingual 0.4 mg SUBLINGUAL Q5M PRN (Reason: Chest Pain) RF: 0 sucralfate 1 gram tablet 1 gm PO .COMPLEX RF: 0 furosemide 20 mg tablet 10 mg PO QAM Qty: 10 RF: 0 doxycycline hyclate 100 mg capsule 100 mg PO BID Qty: 10 RF: 0 topiramate 100 mg tablet 100 mg PO BID 90 Days Qty: 180 RF: 3 metoprolol tartrate 25 mg tablet 12.5 mg PO BID 90 Days Qty: 90 RF: 3 Novolog Flexpen U-100 Insulin 100 unit/mL (3 mL) insulin pen 5 unit SUBCUT TID Qty: 15 RF: 3 metoclopramide HCl 10 mg tablet 10 mg PO TID Qty: 90 RF: 3 famotidine 20 mg tablet 20 mg PO DAILY Qty: 30 RF: 3 Lantus Solostar U-100 Insulin 100 unit/mL (3 mL) insulin pen 30 unit SUBCUT BID Qty: 15 RF: 3 morphine [MS Contin] 30 mg tablet extended release 30 mg PO Q12H 30 Days Qty: 60 RF: 0 tizanidine 4 mg tablet 4 mg PO Q6H PRN (Reason: Muscle Spasm) RF: 0 pantoprazole 40 mg tablet,delayed release (DR/EC) 40 mg PO DAILY RF: 0 ondansetron 4 mg tablet,disintegrating 4 mg PO Q6H PRN (Reason: nausea and vomiting) Qty: 14 RF: 0 Reglan 10 mg tablet 10 mg PO Q6H PRN (Reason: nausea and vomiting) Qty: 20 RF: 0 Referrals: Nathaniel Zelaya MD [Primary Care Provider] - Transfer Attestations Time Spent in Transfer Care*: greater than 30 min Quality Metrics Clinical Quality Measures: During this hospital stay, did patient experience: None Coding Level of Care Code Acute Handle Lathe Operator for Chg Fwd Exam Comprehensive Diagnoses Hypokalemia E87.6 Abnormal EKG R94.31 Elevated troponin R79.89 Type 1 diabetes mellitus with complication E10.8 Fever of unknown origin R50.9 Intractable vomiting R11.2 Nausea presence: with nausea Vomiting type: unspecified Diarrhea R19.7 Melanotic stools K92.1 Sinus tachycardia R00.0 Headache R51 Abdominal pain R10.84 Abdominal location: generalized Chest pain R07.9
--- NOTE | 2019-10-04 21:20 | PC.NURSE ---
Transfer note Patient transferred to [facility] via [facility], vitals stable. Patient alert and orientated.
[2019-10-05 13:30] LABS: Lyme AB Screen <0.90 index
[2019-10-06 12:40] LABS: Anti-Nuclear Antibody Screen NEGATIVE (NEGATIVE)
[2019-10-06 16:54] LABS: St. Louis Enceph.Virus IGG CSF <1:1; St. Louis Enceph.Virus IGM CSF <1:1
[2019-10-06 22:11] LABS: E. Chaffeensis AB IGG <1:64; E. Chaffeensis AB IGM <1:20
[2019-10-07 05:15] LABS: West Nile Virus AB (IGG) <1.30 index; West Nile Virus AB (IGM) <0.90 index
[2019-10-07 17:30] LABS: RMSF IGG NOT DETECTED; RMSF IGM NOT DETECTED
[2019-10-07 21:49] LABS: Lyme Disease AB (IGG),IBL NO BANDS DETECTED; Lyme Disease AB (IGM), IBL NO BANDS DETECTED
== END 2019-10-04 21:00 | disposition short-term general hospital (02) | DRG 379 ==
LOC: ER 10-02 00:30 → ICU 10-02 02:58 → MEDSURG 10-02 20:01
PROVIDERS: Emergency Medicine; Nurse Practitioner Family; Admitting Provider Internal Medicine; PCP Internal Medicine; Visit Provider Internal Medicine
DX: K92.1 Melena (principal); E86.0 Dehydration; R00.0 Tachycardia, unspecified; E87.6 Hypokalemia; E10.40 Type 1 diabetes mellitus with diabetic neuropathy, unspecified; F17.210 Nicotine dependence, cigarettes, uncomplicated; Z86.73 Personal history of transient ischemic attack (TIA), and cerebral infarction without residual deficits; Z79.82 Long term (current) use of aspirin; G35 Multiple sclerosis; G89.29 Other chronic pain; M54.2 Cervicalgia; F41.1 Generalized anxiety disorder; M79.7 Fibromyalgia; E10.43 Type 1 diabetes mellitus with diabetic autonomic (poly)neuropathy; K31.84 Gastroparesis; M70.62 Trochanteric bursitis, left hip
CPT/HCPCS: 12345; 36415; 36416; 36600; 62328; 70450; 71045; 74181; 76705; 80053; 80074; 80500; 81001; 81003; 82009; 82274; 82803; 82945; 82962; 83605; 83690; 84157; 84484; 85025; 85651; 86038; 86140; 86611; 86617; 86618; 86653; 86666; 86757; 86788; 86789; 87040; 87070; 87075; 87086; 87205; 87493; 87506; 87806; 89050; 93005; 93306; 96372; 96375; 99283; C9113; G0378; J0360; J0744; J1200; J1650; J1815; J2001; J2060; J2270; J2405; J2550; J2765; J3480; J7030; S0030

== ENCOUNTER 2019-10-01 21:14 | Emergency (ER) | payer MEDICAID, SELFPAY | END 2019-10-02 05:06 | disposition still patient (30) | LOC: ER 10-04 03:16 | PROVIDERS: Emergency Provider Nurse Practitioner Family; PCP Internal Medicine | DX: E10.65 Type 1 diabetes mellitus with hyperglycemia (principal); R10.84 Generalized abdominal pain; Z79.82 Long term (current) use of aspirin; Z79.4 Long term (current) use of insulin; F17.210 Nicotine dependence, cigarettes, uncomplicated; G35 Multiple sclerosis | CPT/HCPCS: 12345; 36415; 36416; 36600; 62328; 70450; 71045; 76705; 80053; 80074; 80500; 81001; 81003; 82009; 82803; 82945; 82962; 83605; 83690; 84157; 84484; 85025; 85651; 86140; 86617; 86618; 86653; 86666; 86757; 86788; 86789; 87040; 87070; 87075; 87086; 87205; 87806; 89050; 93005; 96372; 96374; 96375; 96376; 99283; 99285; C9113; G0378; J0744; J1200; J1650; J1815; J2270; J2405; J2550; J2765; J7030; S0030 ==

== ENCOUNTER → 2019-10-26 15:52 | Outpatient (BNVA) | payer MEDICAID, SELFPAY | PROVIDERS: PCP Internal Medicine; Visit Provider Family Medicine | DX: N30.00 Acute cystitis without hematuria (principal); M25.561 Pain in right knee | CPT/HCPCS: 80053; 87077; 87086; 87186 ==

== ENCOUNTER → 2019-11-09 14:00 | Outpatient (BNVA) | payer MEDICAID, SELFPAY | PROVIDERS: PCP Internal Medicine; Visit Provider Nurse Practitioner Family | DX: R50.9 Fever, unspecified (principal); W55.03XA Scratched by cat, initial encounter | CPT/HCPCS: 87635 ==

== ENCOUNTER → 2019-12-03 08:48 | Outpatient (BNVA) | payer MEDICAID, SELFPAY | PROVIDERS: PCP Internal Medicine; Visit Provider Specialist | DX: G43.711 Chronic migraine without aura, intractable, with status migrainosus (principal); F17.210 Nicotine dependence, cigarettes, uncomplicated | CPT/HCPCS: 64615; J0585 ==

== ENCOUNTER → 2020-02-23 09:49 | Outpatient (BNVA) | payer MEDICAID, SELFPAY | PROVIDERS: PCP Internal Medicine; Visit Provider Nurse Practitioner Family | DX: R30.9 Painful micturition, unspecified (principal) | CPT/HCPCS: 81003; 87077; 87086; 87184 ==

== ENCOUNTER → 2020-03-03 08:51 | Outpatient (BNVA) | payer MEDICAID, SELFPAY | PROVIDERS: PCP Internal Medicine; Visit Provider Specialist | DX: G43.711 Chronic migraine without aura, intractable, with status migrainosus (principal); F17.210 Nicotine dependence, cigarettes, uncomplicated | CPT/HCPCS: 64615; J0585 ==

== ENCOUNTER → 2020-05-05 08:59 | Outpatient (BNVA) | payer MEDICAID, SELFPAY | PROVIDERS: PCP Internal Medicine; Visit Provider Specialist | DX: M54.81 Occipital neuralgia (principal); F17.210 Nicotine dependence, cigarettes, uncomplicated | CPT/HCPCS: 64405; J1030; J3490 ==

== ENCOUNTER 2020-05-05 11:48 | Emergency (ER) | payer MEDICAID, SELFPAY ==
[2020-05-05 12:17] VITALS: BP 146/85; PULSE 95; RESP 18; TEMP 36.8; O2SAT 98; BMI 26.6
--- NOTE | 2020-05-05 12:42 | PC.NURSE ---
Was given a Steroid injection in right and left back of neck. Long History of Migraine
--- NOTE | 2020-05-05 12:43 | W.ED.GENADLT ---
HPI - General Adult General: Chief complaint: General Medical Stated complaint: FACE SWELLING, SENT FROM DR. PEOPLES Time Seen by Provider: 05/05/20 12:43 History of Present Illness: HPI narrative: Patient is a 49-year-old female comes to the ED after having right-sided facial swelling. She was sent here by Dr. Peoples for further evaluation. Dr. Peoples performed an occipital nerve block using Depo-Medrol to help with patient's migraines. Approximately an hour after getting treatment patient noticed the right side of her face started swelling significantly. She then went back and saw Dr. Peoples and she told her to come here for further evaluation. Patient says her facial swelling has decreased dramatically since coming here to the ED. She says her right side of her face is back to normal. Patient does endorse having a mild sore throat that started approximately 3 days ago but she says has not been severe or progressed at all. She denies any fevers, dental pain, shortness of breath, swelling in throat or airway narrowing, nausea/vomiting. Associated symptoms: Deny chest pain, dyspnea, headache(s), nausea, rash, palpitations or vomiting Review of Systems Const: Denies: fever(s), chills or fatigue Eyes: Denies: change in vision or eye discomfort ENMT: Reports: other (Right-sided facial swelling); Denies: throat pain, odynophagia, nasal discharge or nasal congestion Card: Denies: chest pain, palpitations, edema, swelling of feet/ankles, dyspnea on exertion or orthopnea Resp: Denies: dyspnea, productive cough or non-productive cough GI: Denies: abdominal pain, nausea, vomiting, diarrhea, constipation or hematochezia : Denies: flank pain, dysuria or hematuria Musc: Denies: neck pain, back pain or extremity swelling Skin/Breast: Denies: rash or new lesions Neuro: Denies: headache(s), numbness in extremities or weakness in extremities PFS ED PFSH: Medical History Chronic migraine without aura, intractable, with status migrainosus CVA (cerebral vascular accident) Received TPA 10/17 Fever Fever of unknown origin Fibromyalgia Gastroparesis Generalized anxiety disorder Hypokalemia Multiple sclerosis Multiple sclerosis Painful diabetic neuropathy Sinus tachycardia TIA (transient ischemic attack) Trochanteric bursitis of left hip Type 1 diabetes mellitus with complication Surgical History H/O carpal tunnel repair H/O shoulder surgery H/O: hysterectomy Hx of tubal ligation Family History Denies family history of Hyperlipidemia Hypertension Social History Smoking and tobacco status: current every day smoker cigarettes Packs smoked per day: 1 Alcohol intake: never History of recent travel: No Physical Exam Narrative: EXAM NARRATIVE: Patient is a healthy-appearing 49-year-old female who is showing no signs of acute distress or pain. She has no visible facial swelling and does not appear to be having any signs of respiratory distress. Const: COMMON NORMALS: no acute distress, patient oriented x3, healthy appearing and alert GENERAL APPEARANCE: cooperative and comfortable HENMT: COMMON NORMALS: normocephalic HEAD & SCALP: normocephalic FACE & SINUS: normal facial exam MOUTH: Normal oral and palatal mucosa present THROAT: posterior oropharynx normal and uvula midline OTHER: Patient has no visible facial swelling. Eye: COMMON NORMALS: conjunctivae normal PERIORBITAL: periorbital findings normal CONJUNCTIVA: Yes conjunctivae normal Neck/C-Spine: COMMON NORMALS: supple GENERAL: Yes normal visual inspection Resp: COMMON NORMALS: normal respiratory effort, No retractions, No use of accessory muscles and clear to auscultation bilaterally AUSCULTATION: clear to auscultation bilaterally Cardio: COMMON NORMALS: regular rate, regular rhythm, S1 normal heart sound present, S2 normal heart sound present, No gallops present (Cardio), No clicks present (Cardio), No murmurs present (Cardio) and Peripheral pulses 2+ throughout RATE: regular rate RHYTHM: regular rhythm HEART SOUNDS: S1 normal heart sound present and S2 normal heart sound present PERIPHERAL PULSES: Peripheral pulses 2+ throughout GI: COMMON NORMALS: Normal to inspection, nondistended, normoactive bowel sounds present, Soft to palpation, non-tender and no masses PALPATION: Yes Soft to palpation : COMMON NORMALS: Yes no CVA tenderness BLADDER/KIDNEY EXAM: Yes no CVA tenderness Back/Pelvis: COMMON NORMALS: no CVA tenderness Extremity: COMMON NORMALS: normal to inspection Neuro: COMMON NORMALS: patient oriented x3 and moves all extremities SENSORIUM/ORIENTATION: Yes alert Skin: GENERAL SKIN EXAM: dry skin Course Vital Signs: Vital signs: Vital Signs Temperature 97.4 F L 05/05/20 13:16 Pulse Rate 82 05/05/20 13:16 Respiratory Rate 18 05/05/20 13:16 Blood Pressure 140/82 05/05/20 13:16 Pulse Oximetry 96 05/05/20 13:16 MDM - General Adult MDM Narrative: Medical decision making narrative: Patient is a 49-year-old female who comes to the ED for acute right-sided facial swelling. Patient was sent here by Dr. Peoples and her facial swelling occurred about an hour after she received an injection at Dr. Peoples's office. On arrival to the ED her facial swelling had completely resolved. Upon exam patient looked healthy, no signs of any respiratory distress or lip or tongue swelling. She had no facial swelling. Based off history this was likely due to some kind of allergic reaction to injection she received. Patient was given a dose of Benadryl while here in the ED and then sent home with a prescription for Medrol Dosepak. Return to ED precautions given. Follow-up with PCP in 7 to 10 days for reevaluation. Patient understood and agreed with plan. Discharge Plan Discharge Patient Disposition: Home Clinical Impression: Allergic reaction Qualifiers: Encounter type: initial encounter Qualified Code(s): T78.40XA - Allergy, unspecified, initial encounter Condition: Stable Prescriptions: New Medrol (Chema) 4 mg tablets,dose pack See Rx Instructions .ROUTE .COMPLEX Qty: 21 RF: 0 No Action desvenlafaxine 100 mg tablet extended release 24 hr 100 mg PO DAILY Qty: 90 RF: 3 potassium chloride 10 mEq capsule, extended release 10 meq PO BID RF: 0 nystatin 100,000 unit/mL suspension 5 ml PO QID 7 Days Qty: 140 RF: 0 Lantus Solostar U-100 Insulin 100 unit/mL (3 mL) insulin pen 30 unit SUBCUT BID Qty: 15 RF: 3 pregabalin [Lyrica] 75 mg capsule 75 mg PO TID MDD 3 Qty: 90 RF: 2 metoclopramide HCl 10 mg tablet 10 mg PO BID 90 Days Qty: 180 RF: 3 aspirin [Adult Aspirin Regimen] 81 mg tablet,delayed release (DR/EC) 81 mg PO DAILY RF: 0 diphenhydramine HCl [Allergy (diphenhydramine)] 25 mg capsule 25 mg PO BID PRN (Reason: Allergic Symptoms) RF: 0 nitroglycerin 0.4 mg tablet, sublingual 0.4 mg SUBLINGUAL Q5M PRN (Reason: Chest Pain) RF: 0 valacyclovir [Valtrex] 1 gram tablet 1,000 mg PO BID 10 Days Qty: 20 RF: 0 mupirocin 2 % ointment 1 applic TOPICAL BID Qty: 15 RF: 0 sucralfate 1 gram tablet 1 gm PO .COMPLEX Qty: 90 RF: 3 morphine [MS Contin] 30 mg tablet extended release 30 mg PO Q12H 30 Days Qty: 60 RF: 0 furosemide 20 mg tablet See Rx Instructions .ROUTE .COMPLEX Qty: 15 RF: 0 Novolog Flexpen U-100 Insulin 100 unit/mL (3 mL) insulin pen 5 unit SUBCUT TID Qty: 15 RF: 3 ondansetron 4 mg tablet,disintegrating See Rx Instructions .ROUTE .COMPLEX Qty: 30 RF: 0 ipratropium bromide 42 mcg (0.06 %) spray,non-aerosol See Rx Instructions .ROUTE .COMPLEX Qty: 15 RF: 3 (DME) pen needle, diabetic [Unifine Pentips] 31 gauge x 5/16 needle See Rx Instructions .ROUTE .MEDSUPPLY Qty: 100 RF: 5 tizanidine 4 mg capsule 4 mg PO Q6H PRN (Reason: muscle spasticity) Qty: 120 RF: 3 nitrofurantoin monohyd/m-cryst [Macrobid] 100 mg capsule 100 mg PO BID 7 Days Qty: 14 RF: 0 sumatriptan succinate 100 mg tablet 100 mg PO DAILY PRN (Reason: Migraine Headache) Qty: 30 RF: 3 famotidine 20 mg tablet 20 mg PO DAILY Qty: 90 RF: 3 topiramate 100 mg tablet 100 mg PO BID 90 Days Qty: 180 RF: 3 metoprolol tartrate 25 mg tablet 12.5 mg PO BID 90 Days Qty: 90 RF: 3 pantoprazole 40 mg tablet,delayed release (DR/EC) 40 mg PO DAILY Qty: 90 RF: 0 Discharge Orders: Discharge ED (Routine); Ordered 05/05/20 Ordered By: Jomar Harden Referrals: Nathaniel Zelaya MD [Primary Care Provider] - Discharge Diet: Regular Discharge Activity: Resume usual activity Patient Instructions: Allergic Reaction Activity Restrictions/Additional Instructions: Follow-up with medical provider as directed in 7 to 10 days for reevaluation. Take medications as prescribed. You can also take [id number] Benadryl per bottle instructions to help with any allergic reaction symptoms. Return to the ER or your medical provider if condition worsens. Please read and understand discharge instructions. If any questions, please ask. Coding Level of Care Code ED Chief Development Officer for Chg Fwd Exam Comprehensive
[2020-05-05 12:44] VITALS: BP 145/86; PULSE 85; RESP 18; O2SAT 96
[2020-05-05] MEDS: diphenhydrAMINE 25 mg Capsule PO (13:14)
[2020-05-05 13:16] VITALS: BP 140/82; PULSE 82; RESP 18; TEMP 36.3; O2SAT 96
== END 2020-05-05 13:18 | disposition home or self-care (01) ==
PROVIDERS: Emergency Provider Physician Assistant; PCP Internal Medicine
DX: T78.40XA Allergy, unspecified, initial encounter (principal); Z79.4 Long term (current) use of insulin; Z79.82 Long term (current) use of aspirin; Z86.73 Personal history of transient ischemic attack (TIA), and cerebral infarction without residual deficits; G35 Multiple sclerosis; E10.40 Type 1 diabetes mellitus with diabetic neuropathy, unspecified; F17.210 Nicotine dependence, cigarettes, uncomplicated
CPT/HCPCS: 12345; 99281; 99282

== ENCOUNTER → 2020-05-26 09:04 | Outpatient (BNVA) | payer MEDICAID, SELFPAY | PROVIDERS: PCP Internal Medicine; Visit Provider Specialist | DX: G43.711 Chronic migraine without aura, intractable, with status migrainosus (principal); F17.210 Nicotine dependence, cigarettes, uncomplicated | CPT/HCPCS: 64615; J0585 ==

== ENCOUNTER → 2020-07-15 14:01 | Outpatient (BNVA) | payer MEDICAID, SELFPAY | PROVIDERS: PCP Internal Medicine; Visit Provider Nurse Practitioner Family | DX: R30.0 Dysuria (principal); N32.89 Other specified disorders of bladder; E10.8 Type 1 diabetes mellitus with unspecified complications | CPT/HCPCS: 36416; 81003; 82962; 87077; 87086; 87184 ==

== ENCOUNTER → 2020-07-22 11:26 | Outpatient (BNVA) | payer MEDICAID, SELFPAY | PROVIDERS: PCP Internal Medicine; Visit Provider Nurse Practitioner Family | DX: R30.0 Dysuria (principal) | CPT/HCPCS: 81000 ==

== ENCOUNTER → 2020-08-22 13:09 | Outpatient (BNVA) | payer MEDICAID, SELFPAY | PROVIDERS: PCP Internal Medicine; Visit Provider Family Medicine | DX: R30.0 Dysuria (principal); R82.90 Unspecified abnormal findings in urine; N30.00 Acute cystitis without hematuria | CPT/HCPCS: 81003; 87077; 87086; 87184 ==

== ENCOUNTER → 2020-10-06 09:15 | Outpatient (BNVA) | payer MEDICAID, SELFPAY | PROVIDERS: PCP Internal Medicine; Visit Provider Specialist | DX: G43.711 Chronic migraine without aura, intractable, with status migrainosus (principal); F17.210 Nicotine dependence, cigarettes, uncomplicated | CPT/HCPCS: 64615; J0585 ==

== ENCOUNTER → 2020-10-07 16:14 | Outpatient (BNVA) | payer MEDICAID, SELFPAY | PROVIDERS: PCP Internal Medicine; Visit Provider Family Medicine | DX: E11.9 Type 2 diabetes mellitus without complications (principal) | CPT/HCPCS: 83036 ==

== ENCOUNTER 2020-10-17 09:49 | Outpatient (CLI) | payer MEDICAID, SELFPAY | END 2020-10-17 09:50 | disposition home or self-care (01) | LOC: WOUND 09:50 | PROVIDERS: PCP Internal Medicine; Visit Provider Nurse Practitioner Family | DX: E11.621 Type 2 diabetes mellitus with foot ulcer (principal); L97.512 Non-pressure chronic ulcer of other part of right foot with fat layer exposed | CPT/HCPCS: 11042; G0463 ==

== ENCOUNTER → 2020-10-19 14:06 | Outpatient (BNVA) | payer MEDICAID, SELFPAY | PROVIDERS: PCP Internal Medicine; Visit Provider Nurse Practitioner Family | DX: L97.522 Non-pressure chronic ulcer of other part of left foot with fat layer exposed (principal) | CPT/HCPCS: 73630 ==

== ENCOUNTER 2020-11-07 08:30 | Outpatient (CLI) | payer MEDICAID, SELFPAY | END 2020-11-07 08:31 | disposition home or self-care (01) | LOC: WOUND 08:31 | PROVIDERS: PCP Internal Medicine; Visit Provider Nurse Practitioner Family | DX: E11.621 Type 2 diabetes mellitus with foot ulcer (principal); L97.512 Non-pressure chronic ulcer of other part of right foot with fat layer exposed; F17.210 Nicotine dependence, cigarettes, uncomplicated | CPT/HCPCS: 11042 ==

== ENCOUNTER 2020-11-14 09:04 | Outpatient (CLI) | payer MEDICAID, SELFPAY | END 2020-11-14 09:05 | disposition home or self-care (01) | PROVIDERS: PCP Internal Medicine; Visit Provider Nurse Practitioner Family | DX: E10.621 Type 1 diabetes mellitus with foot ulcer (principal); L97.512 Non-pressure chronic ulcer of other part of right foot with fat layer exposed; F17.210 Nicotine dependence, cigarettes, uncomplicated | CPT/HCPCS: 11042 ==

== ENCOUNTER 2020-11-21 09:29 | Outpatient (CLI) | payer MEDICAID, SELFPAY | END 2020-11-21 09:30 | disposition home or self-care (01) | LOC: WOUND 09:29 | PROVIDERS: PCP Internal Medicine; Visit Provider Emergency Medicine | DX: E11.621 Type 2 diabetes mellitus with foot ulcer (principal); L97.522 Non-pressure chronic ulcer of other part of left foot with fat layer exposed; F17.210 Nicotine dependence, cigarettes, uncomplicated | CPT/HCPCS: 11042 ==

== ENCOUNTER 2020-11-23 09:34 | Outpatient (CLI) | payer MEDICAID, SELFPAY | END 2020-11-23 09:35 | disposition home or self-care (01) | LOC: WOUND 09:35 | PROVIDERS: PCP Internal Medicine; Visit Provider Nurse Practitioner Family | DX: E11.621 Type 2 diabetes mellitus with foot ulcer (principal); L97.529 Non-pressure chronic ulcer of other part of left foot with unspecified severity; F17.210 Nicotine dependence, cigarettes, uncomplicated | CPT/HCPCS: 29445 ==

== ENCOUNTER 2020-11-28 09:01 | Outpatient (CLI) | payer MEDICAID, SELFPAY | END 2020-11-28 09:02 | disposition home or self-care (01) | LOC: WOUND 09:01 | PROVIDERS: PCP Internal Medicine; Visit Provider Emergency Medicine | DX: E10.621 Type 1 diabetes mellitus with foot ulcer (principal); L97.522 Non-pressure chronic ulcer of other part of left foot with fat layer exposed; F17.210 Nicotine dependence, cigarettes, uncomplicated | CPT/HCPCS: 11042; 99212 ==

== ENCOUNTER 2020-12-06 09:29 | Outpatient (CLI) | payer MEDICAID, SELFPAY | END 2020-12-06 09:30 | disposition home or self-care (01) | LOC: WOUND 09:30 | PROVIDERS: PCP Internal Medicine; Visit Provider Emergency Medicine | DX: E11.621 Type 2 diabetes mellitus with foot ulcer (principal); L97.522 Non-pressure chronic ulcer of other part of left foot with fat layer exposed; F17.210 Nicotine dependence, cigarettes, uncomplicated | CPT/HCPCS: 11042 ==

== ENCOUNTER 2020-12-12 10:16 | Outpatient (CLI) | payer MEDICAID, SELFPAY | END 2020-12-12 10:17 | disposition home or self-care (01) | LOC: WOUND 10:17 | PROVIDERS: PCP Internal Medicine; Visit Provider Emergency Medicine | DX: Z09 Encounter for follow-up examination after completed treatment for conditions other than malignant neoplasm (principal) | CPT/HCPCS: 29445 ==

== ENCOUNTER 2020-12-19 10:06 | Outpatient (CLI) | payer MEDICAID, SELFPAY | END 2020-12-19 10:07 | disposition home or self-care (01) | LOC: WOUND 10:06 | PROVIDERS: PCP Internal Medicine; Visit Provider Emergency Medicine | DX: Z09 Encounter for follow-up examination after completed treatment for conditions other than malignant neoplasm (principal); F17.210 Nicotine dependence, cigarettes, uncomplicated | CPT/HCPCS: 99212 ==

== ENCOUNTER → 2020-12-22 13:44 | Outpatient (BNVA) | payer MEDICAID, SELFPAY | PROVIDERS: PCP Internal Medicine; Visit Provider Nurse Practitioner Family | DX: R30.0 Dysuria (principal); R82.90 Unspecified abnormal findings in urine; N30.00 Acute cystitis without hematuria; Z68.25 Body mass index [BMI] 25.0-25.9, adult | CPT/HCPCS: 81003; 87077; 87086; 87184 ==

== ENCOUNTER → 2021-01-03 11:13 | Outpatient (BNVA) | payer MEDICAID, SELFPAY | PROVIDERS: PCP Internal Medicine; Visit Provider Family Medicine | DX: R30.0 Dysuria (principal) | CPT/HCPCS: 81000; 87086 ==

== ENCOUNTER → 2021-01-09 12:15 | Outpatient (BNVA) | payer MEDICAID, SELFPAY | PROVIDERS: PCP Internal Medicine; Visit Provider Family Medicine | DX: N39.0 Urinary tract infection, site not specified (principal); R30.1 Vesical tenesmus | CPT/HCPCS: 81000 ==

== ENCOUNTER → 2021-01-12 11:28 | Outpatient (BNVA) | payer MEDICAID, SELFPAY | PROVIDERS: PCP Internal Medicine; Visit Provider Specialist | DX: G43.711 Chronic migraine without aura, intractable, with status migrainosus (principal); F17.210 Nicotine dependence, cigarettes, uncomplicated | CPT/HCPCS: 64615; J0585 ==

== ENCOUNTER → 2021-01-23 14:29 | Outpatient (BNVA) | payer MEDICAID, SELFPAY | PROVIDERS: PCP Internal Medicine; Referring Provider Family Medicine; Visit Provider Nurse Practitioner Family | DX: N39.0 Urinary tract infection, site not specified (principal) | CPT/HCPCS: 81003 ==

== ENCOUNTER 2021-05-02 11:49 | Outpatient (CLI) | payer MEDICAID, SELFPAY ==
--- NOTE | 2021-05-02 11:55 | XR_ITS ---
WS: [id number] XR KUB [id number] REASON FOR EXAM: RECURRENT UTI FINDINGS: No urinary tract calculi are identified. (3 mm intrarenal calculus on the right demonstrated on CT sc an of the abdomen 10/01/2019.). Unremarkable bowel gas pattern. No free air. No mass identified. XR/XR KUB [id number] IMPRESSION: No significant abnormality identified.
== END 2021-05-02 11:50 | disposition home or self-care (01) ==
PROVIDERS: PCP Internal Medicine; Visit Provider Urology
DX: N39.0 Urinary tract infection, site not specified (principal)
CPT/HCPCS: 74018; 81003; 87086

== ENCOUNTER 2021-05-09 09:26 | Outpatient (CLI) | payer MEDICAID, SELFPAY | END 2021-05-09 09:27 | disposition home or self-care (01) | LOC: WOUND 09:27 | PROVIDERS: PCP Family Medicine; Visit Provider Emergency Medicine | DX: Z09 Encounter for follow-up examination after completed treatment for conditions other than malignant neoplasm (principal); F17.210 Nicotine dependence, cigarettes, uncomplicated; E10.9 Type 1 diabetes mellitus without complications | CPT/HCPCS: 99213 ==

== ENCOUNTER → 2021-05-17 13:31 | Outpatient (BNVA) | payer MEDICAID, SELFPAY | PROVIDERS: PCP Family Medicine; Visit Provider Specialist | DX: G43.711 Chronic migraine without aura, intractable, with status migrainosus (principal); F17.210 Nicotine dependence, cigarettes, uncomplicated | CPT/HCPCS: 64615; J0585 ==

== ENCOUNTER → 2021-09-14 10:07 | Outpatient (BNVA) | payer MEDICAID, SELFPAY | PROVIDERS: PCP Internal Medicine; Visit Provider Specialist | DX: G43.711 Chronic migraine without aura, intractable, with status migrainosus (principal); E10.8 Type 1 diabetes mellitus with unspecified complications; Z79.4 Long term (current) use of insulin; Z95.1 Presence of aortocoronary bypass graft; F17.210 Nicotine dependence, cigarettes, uncomplicated | CPT/HCPCS: 64615; J0585 ==

== ENCOUNTER → 2021-12-07 10:39 | Outpatient (BNVA) | payer MEDICAID, SELFPAY | PROVIDERS: PCP Internal Medicine; Visit Provider Specialist | DX: G43.711 Chronic migraine without aura, intractable, with status migrainosus (principal); Z86.73 Personal history of transient ischemic attack (TIA), and cerebral infarction without residual deficits; Z79.01 Long term (current) use of anticoagulants | CPT/HCPCS: 64615; 99213; J0585 ==

== ENCOUNTER → 2021-12-11 11:29 | Outpatient (BNVA) | payer MEDICAID, SELFPAY | PROVIDERS: PCP Internal Medicine; Visit Provider Family Medicine | DX: R68.83 Chills (without fever) (principal); R30.1 Vesical tenesmus; N39.0 Urinary tract infection, site not specified; Z20.822 Contact with and (suspected) exposure to COVID-19 | CPT/HCPCS: 81000; 87426 ==

== ENCOUNTER → 2021-12-12 10:14 | Outpatient (BNVA) | payer MEDICAID, SELFPAY | PROVIDERS: PCP Internal Medicine; Visit Provider Internal Medicine | DX: E11.9 Type 2 diabetes mellitus without complications (principal) | CPT/HCPCS: 83036 ==

== ENCOUNTER → 2022-01-12 09:08 | Outpatient (BNVA) | payer MEDICAID, SELFPAY | PROVIDERS: PCP Internal Medicine; Visit Provider Urology | DX: N30.20 Other chronic cystitis without hematuria (principal); N20.1 Calculus of ureter; R33.9 Retention of urine, unspecified; R39.11 Hesitancy of micturition | CPT/HCPCS: 81003; 99213 ==

== ENCOUNTER → 2022-01-25 14:08 | Outpatient (BNVA) | payer MEDICAID, SELFPAY | PROVIDERS: PCP Internal Medicine; Visit Provider Nurse Practitioner Family | DX: R05.9 Cough, unspecified (principal); Z20.822 Contact with and (suspected) exposure to COVID-19 | CPT/HCPCS: 87426 ==

== ENCOUNTER → 2022-02-15 11:22 | Outpatient (BNVA) | payer MEDICAID, SELFPAY | PROVIDERS: PCP Internal Medicine; Visit Provider Specialist | DX: I65.22 Occlusion and stenosis of left carotid artery (principal); F17.210 Nicotine dependence, cigarettes, uncomplicated; I69.351 Hemiplegia and hemiparesis following cerebral infarction affecting right dominant side; I69.391 Dysphagia following cerebral infarction; Z79.01 Long term (current) use of anticoagulants | CPT/HCPCS: 99215 ==

== ENCOUNTER → 2022-03-01 10:16 | Outpatient (BNVA) | payer MEDICAID, SELFPAY | PROVIDERS: PCP Internal Medicine; Visit Provider Nurse Practitioner Family | DX: J02.9 Acute pharyngitis, unspecified (principal) | CPT/HCPCS: 87400 ==

== ENCOUNTER → 2022-05-22 14:43 | Outpatient (BNVA) | payer MEDICAID, SELFPAY | PROVIDERS: PCP Internal Medicine; Visit Provider Nurse Practitioner Family | DX: E78.2 Mixed hyperlipidemia (principal) | CPT/HCPCS: 80061 ==

== ENCOUNTER → 2022-05-30 14:34 | Outpatient (BNVA) | payer MEDICAID, SELFPAY | PROVIDERS: PCP Internal Medicine; Visit Provider Urology | DX: R33.9 Retention of urine, unspecified (principal); N30.20 Other chronic cystitis without hematuria | CPT/HCPCS: 51798; 99213 ==

== ENCOUNTER → 2022-08-23 13:08 | Outpatient (BNVA) | payer MEDICAID, SELFPAY | PROVIDERS: PCP Internal Medicine; Visit Provider Specialist | DX: G43.711 Chronic migraine without aura, intractable, with status migrainosus (principal) | CPT/HCPCS: 64615; 64642; J0585 ==

== ENCOUNTER → 2022-11-16 11:36 | Outpatient (BNVA) | payer MEDICAID, SELFPAY | PROVIDERS: PCP Internal Medicine; Visit Provider Specialist | DX: G43.711 Chronic migraine without aura, intractable, with status migrainosus (principal) | CPT/HCPCS: 64615 ==

== ENCOUNTER → 2023-02-14 14:17 | Outpatient (BNVA) | payer MEDICAID, SELFPAY | PROVIDERS: PCP Internal Medicine; Visit Provider Specialist | DX: G43.711 Chronic migraine without aura, intractable, with status migrainosus (principal) | CPT/HCPCS: 64615; 95911; J0585 ==

== ENCOUNTER → 2023-08-15 09:45 | Outpatient (BNVA) | payer MEDICAID, SELFPAY | PROVIDERS: PCP Internal Medicine; Visit Provider Specialist | DX: G43.711 Chronic migraine without aura, intractable, with status migrainosus (principal); I63.512 Cerebral infarction due to unspecified occlusion or stenosis of left middle cerebral artery | CPT/HCPCS: 64615; J0585 ==

== ENCOUNTER → 2023-10-21 14:04 | Outpatient (BNVA) | payer MEDICAID, SELFPAY | PROVIDERS: PCP Internal Medicine; Visit Provider Nurse Practitioner Family | DX: L29.9 Pruritus, unspecified (principal); L30.9 Dermatitis, unspecified; L57.8 Other skin changes due to chronic exposure to nonionizing radiation; L81.4 Other melanin hyperpigmentation | CPT/HCPCS: 11104; 99203 ==

== ENCOUNTER → 2023-11-05 08:01 | Outpatient (BNVA) | payer MEDICAID, SELFPAY | PROVIDERS: PCP Internal Medicine; Visit Provider Nurse Practitioner Family | DX: L28.1 Prurigo nodularis (principal); Z48.02 Encounter for removal of sutures | CPT/HCPCS: 99213 ==

== ENCOUNTER → 2024-01-02 09:55 | Outpatient (BNVA) | payer MEDICAID, SELFPAY | PROVIDERS: PCP Internal Medicine; Visit Provider Specialist | DX: G43.711 Chronic migraine without aura, intractable, with status migrainosus (principal); I63.512 Cerebral infarction due to unspecified occlusion or stenosis of left middle cerebral artery | CPT/HCPCS: 64615; J0585 ==

== ENCOUNTER → 2024-05-08 09:21 | Outpatient (BNVA) | payer MEDICAID, SELFPAY | PROVIDERS: PCP Internal Medicine; Visit Provider Specialist | DX: G43.711 Chronic migraine without aura, intractable, with status migrainosus (principal); I63.512 Cerebral infarction due to unspecified occlusion or stenosis of left middle cerebral artery | CPT/HCPCS: 64615; J0585 ==

== ENCOUNTER → 2024-11-19 08:37 | Outpatient (BNVA) | payer MEDICAID, SELFPAY | PROVIDERS: PCP Internal Medicine; Visit Provider Specialist | DX: G43.711 Chronic migraine without aura, intractable, with status migrainosus (principal); I63.512 Cerebral infarction due to unspecified occlusion or stenosis of left middle cerebral artery | CPT/HCPCS: 64615; J0585; J9999 ==